=== PATIENT | male | born 1985 | race Caucasian/White ===

== ENCOUNTER 2022-10-01 22:44 | Emergency (ER) | payer OTHER ==
--- OUTSIDE RECORDS SUMMARY | 2022-10-01 23:02 | XMS REPORT | Continuity of Care Document ---
:1985 Author Organization [facility] t Address [address] [place] [address] Care Team Providers Name Role Phone BETTYE DELEON Primary Care Physician Unavailable URSZULA MONTANO Attending Clinician Unavailable CEE ALMANZA Attending Clinician Unavailable 2, [facility] Attending Clinician Unavailable Urszula Sanchez Attending Clinician Doctor Unassigned, [place] Attending Clinician Unavailable BETTYE DELEON Attending Clinician Unavailable BETTYE DELEON Attending Clinician Unavailable Pob, [facility] Main Attending Clinician Unavailable Vaccine, [facility] Attending Clinician Unavailable Goirgio Wiggins DO Attending Clinician GIORGIO WIGGINS Attending Clinician Unavailable Kavin Drew Attending Clinician KVAIN ESTEVEZ Attending Clinician Unavailable Only, [facility] Attending Clinician Unavailable UNKNOWN, ATTENDING Attending Clinician Unavailable Malini Billingsley MD Attending Clinician [phone] FABIENNE FIELD Attending Clinician Unavailable HENNY TALBOT Attending Clinician Unavailable Fabienne Field MD Attending Clinician Sully Carney RN Attending Clinician Unavailable Provider, [facility] Attending Clinician Unavailable Erin Jones PA-C Attending Clinician Cailin Banks Attending Clinician BETTYE DELEON Admitting Clinician Unavailable Payers Payer Name Policy Type Policy Number Effective Date Expiration Date [facility] [id number] 2018 00:00:00 Problems Condition Condition Condition Status Onset Resolution Last Treating Co mments Source Name Details Category Date Date Treatment Clinician Date Tinea Tinea Disease Active Univers cruris cruris 3-10 ity of 00:00: [place] [facility] COVID-19 COVID-19 Disease Active Unive rs virus virus 2-23 [place] [facility] Arthralgia Arthralgia Disease Active U nivers , , 2-23 [place] unspecif[place] joint 00 [facility] Swelling Swelling Disease Active Unive rs of joint of joint 2-23 ity of of of 00:00: [place] multiple multiple 00 Medica l sites sites Branch 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 2-23 ity of 00:00: [place] [facility] Sore Sore Disease Active Univers throat throat 2-23 ity of 00:00: [place] [facility] Allergies, Adverse Reactions, Alerts Allergy Allergy Status Severity Reaction(s) Onset Inactive Treating Comm ents Source Name Type Date Date Clinician NO KNOWN Drug Active Univers ALLERGIE Class ity of S [facility] Social History Social Habit Start Date Stop Date Quantity Comments Source History [facility] o f Alcohol Frequency [facility] History [facility] o f Alcohol Std Drinks [facility] History [facility] o f Alcohol Binge [facility] History of tobacco Cigarette Smoker University of use [facility] Alcohol intake 2022-09-27 2022-09-27 0 /d University of 00:00:00 00:00:00 [facility] Exposure to 2022-08-27 2022-09-06 Not sure [facility] SARS-CoV-2 (event) 00:00:00 12:39:00 [facility] Cigarettes smoked 2022-02-26 2022-02-26 Univers ity of current (pack per 00:00:00 00:00:00 [facility] ) - Reported Branch Cigarette 2022-02-26 2022-02-26 University of pack-years 00:00:00 00:00:00 [facility] Tobacco use and 2022-02-26 2022-02-26 Former smokeless Uni versity of exposure 00:00:00 00:00:00 tobacco user [facility] Tobacco Comment 2022-02-26 2022-02-26 quit 2009 Universit y of 00:00:00 00:00:00 [facility] Alcohol Comment 2016-12-04 2016-12-04 Quit drinking 4 Univ ersity of 00:00:00 00:00:00 months ago [facility] Sex [birth year] At [birth year] Universit y of 00:00:00 00:00:00 [facility] Smoking Status Start Date Stop Date Source Ex-smoker 2022-02-26 00:00:00 2022-02-26 00:00:00 [facility] [place] [facility] Medications Ordered Filled Start Stop Current Ordering Indication Dosage Frequency Signature Comments Components Source Medication Medication Date Date Medication? Clinician (SIG) Name Name christopher Yes [id number] Apply to [place] [id number] area(s) 2 ity of acetonide 00:00: (two) [place] 0.1 % cream 00 times Medical daily. Branch triamcinolo Yes [id number] Apply to [place] [id number] area(s) 2 ity of acetonide 00:00: (two) [place] 0.1 % cream 00 times Medical daily. Branch triamcinolo Yes [id number] Apply to [place] [id number] area(s) 2 ity of acetonide 00:00: (two) [place] 0.1 % cream 00 times Medical daily. Branch cyclobenzap Yes [id number] 5mg Take 1 Univers rine 5 mg 5-11 tablet by ity o f tablet 00:00: mouth 3 [place] 00 (three) Medical times Branch daily as needed for Muscle Spasms. cyclobenzap 2022-0 Yes [id number] 5mg Take 1 Univers rine 5 mg 5-11 tablet by ity o f tablet 00:00: mouth 3 [place] 00 (three) Medical times Branch daily as needed for Muscle Spasms. cyclobenzap 2022-0 Yes [id number] 5mg Take 1 Univers rine 5 mg 5-11 tablet by ity o f tablet 00:00: mouth 3 [place] 00 (three) Medical times Branch daily as needed for Muscle Spasms. cyclobenzap 2023-0 Yes [id number] 5mg Take 1 Univers rine 5 mg 5-11 tablet by ity o f tablet 00:00: mouth 3 [place] 00 (three) Medical times Branch daily as needed for Muscle Spasms. cyclobenzap Yes [id number] 5mg Take 1 Univers rine 5 mg 5-11 tablet by ity o f tablet 00:00: mouth 3 [place] 00 (three) Medical times Branch daily as needed for Muscle Spasms. levothyroxi Yes [id number] 125ug Take 1 Univers ne 125 mcg 4-17 tablet by ity of tablet 00:00: mouth [place] 00 every Medical morning. Branch levothyroxi Yes [id number] 125ug Take 1 Univers ne 125 mcg 4-17 tablet by ity of tablet 00:00: mouth [place] 00 every Medical morning. Branch levothyroxi Yes [id number] 125ug Take 1 Univers ne 125 mcg 4-17 tablet by ity of tablet 00:00: mouth [place] 00 every Medical morning. Branch levothyroxi Yes [id number] 125ug Take 1 Univers ne 125 mcg 4-17 tablet by ity of tablet 00:00: mouth [place] 00 every Medical morning. Branch levothyroxi Yes [id number] 125ug Take 1 Univers ne 125 mcg 4-17 tablet by ity of tablet 00:00: mouth [place] 00 every Medical morning. Branch levothyroxi Yes [id number] 125ug Take 1 Univers ne 125 mcg 4-17 tablet by ity of tablet 00:00: mouth [place] 00 every Medical morning. Branch levothyroxi Yes [id number] 125ug Take 1 Univers ne 125 mcg 4-17 tablet by ity of tablet 00:00: mouth [place] 00 every Medical morning. Branch levothyroxi Yes [id number] 125ug Take 1 Univers ne 125 mcg 4-17 tablet by ity of tablet 00:00: mouth [place] 00 every Medical morning. Branch naproxen 2022- No Take by Unive rs sodium 08-08 mouth as ity of (ALEVE 11:30: 00:00 needed. [place] ORAL) 55 :00 Medical Branch acetaminoph 2022- No Take by Vignesh velez en (TYLENOL 4-12 04-12 mouth as ity of ORAL) 11:30: 00:00 needed for [place] 55 :00 Pain Medical (scale Branch 1-3), Pain (scale 4-6) or Pain (scale 7-10). methylPREDN 2021-04 Yes [id number] Take by Univers ISolone 0-31 mouth ity of (MEDROL, 00:00: SEE-INSTRU [place] as SCOTTY,) 4 mg 00 CTIONS. Medica l tablets follow Branch package directions diclofenac 2021-04 Yes [id number] 75mg Take 1 U nivers 75 mg EC 0-31 tablet by ity of tablet 00:00: mouth in [place] 00 the Medical morning Branch and 1 tablet in the evening. Take with meals. Please do not take with other NSAID's methylPREDN 2021-04 Yes [id number] Take by Univers ISolone 0-31 mouth ity of (MEDROL, 00:00: SEE-INSTRU [place] SCOTTY,) 4 mg 00 CTIONS. Medica l tablets follow Branch package directions diclofenac 2021-04 Yes [id number] 75mg Take 1 U nivers 75 mg EC 0-31 tablet by ity of tablet 00:00: mouth in [place] [address] the [facility] and 1 tablet in the evening. Take with meals. Please do not take with other NSAID's methylPREDN 2021-04 Yes [id number] Take by Univers ISolone 0-31 mouth ity of (MEDROL, 00:00: SEE-INSTRU [place]OT[place],) 4 mg 00 CTIONS. Medica l tablets follow Branch package directions diclofenac 2021-04 Yes [id number] 75mg Take 1 U nivers 75 mg EC 0-31 tablet by ity of tablet 00:00: mouth in [place] [address] the [facility] morning Branch and 1 tablet in the evening. Take with meals. Please do not take with other NSAID's methylPREDN 2021-04 Yes [id number] Take by Univers ISolone 0-31 mouth ity of (MEDROL, 00:00: SEE-INSTRU [place]OT[place],) 4 mg 00 CTIONS. Medica l tablets follow Branch package directions diclofenac 2021-04 Yes [id number] 75mg Take 1 U nivers 75 mg EC 0-31 tablet by ity of tablet 00:00: mouth in [place] [address] the [facility] morning [place] and 1 tablet in the evening. Take with meals. Please do not take with other NSAID's methylPREDN 2021-04 Yes [id number] Take by Univers ISolone 0-31 mouth ity of (MEDROL, 00:00: SEE-INSTRU [place],) 4 mg 00 CTIONS. Medica l tablets follow Branch package directions diclofenac 2021-04 Yes [id number] 75mg Take 1 U nivers 75 mg EC 0-31 tablet by ity of tablet 00:00: mouth in [place] [address] the [facility] and 1 tablet in the evening. Take with meals. Please do not take with other NSAID's methylPREDN 2021-04 Yes [id number] Take by Univers ISolone 0-31 mouth ity of (MEDROL, 00:00: SEE-INSTRU [place],) 4 mg 00 CTIONS. Medica l tablets follow Branch package directions diclofenac 2021-04 Yes [id number] 75mg Take 1 U nivers 75 mg EC 0-31 tablet by ity of tablet 00:00: mouth in [address] and 1 tablet in the evening. Take with meals. Please do not take with other NSAID's methylPREDN 2021-04 Yes [id number] Take by Univers ISolone 0-31 mouth ity of (MEDROL, 00:00: SEE-INSTRU [place],) 4 mg 00 CTIONS. Medica l tablets follow Branch package directions diclofenac 2021-04 Yes [id number] 75mg Take 1 U nivers 75 mg EC 0-31 tablet by ity of tablet 00:00: mouth in [address] and 1 tablet in the evening. Take with meals. Please do not take with other NSAID's methylPREDN 2021-04 Yes [id number] Take by Univers ISolone 0-31 mouth ity of (MEDROL, 00:00: SEE-INSTRU [place],) 4 mg 00 CTIONS. Medica l tablets follow Branch package directions diclofenac 2021-04 Yes [id number] 75mg Take 1 U nivers 75 mg EC 0-31 tablet by ity of tablet 00:00: mouth in [address] and 1 tablet in the evening. Take with meals. Please do not take with other NSAID's methylPREDN 2021-04 Yes [id number] Take by Univers ISolone 0-31 mouth ity of (MEDROL, 00:00: SEE-INSTRU [place],) 4 mg 00 CTIONS. Medica l tablets follow Branch package directions diclofenac 2021-04 Yes [id number] 75mg Take 1 U nivers 75 mg EC 0-31 tablet by ity of tablet 00:00: mouth in [place] 00 the Medical morning [place] and 1 tablet in the evening. Take with meals. Please do not take with other NSAID's methylPREDN 2021-04 Yes [id number] Take by Univers ISolone 0-31 mouth ity of (MEDROL, 00:00: SEE-INSTRU [place],) 4 mg 00 CTIONS. Medica l tablets follow Branch package directions diclofenac 2021-04 Yes [id number] 75mg Take 1 U nivers 75 mg EC 0-31 tablet by ity of tablet 00:00: mouth in [place] 00 the [facility] morning [place] and 1 tablet in the evening. Take with meals. Please do not take with other NSAID's methylPREDN 2021-04- No [id number] Take by Univers ISolone 0-31 04-12 mouth ity of (MEDROL, 00:00: 00:00 [place]IN[place]OT[place],) 4 mg 00 :00 CTIONS. Medica l tablets follow Branch package directions diclofenac 2021-04- No [id number] 75mg Take 1 Univers 75 mg EC 0-31 04-12 tablet by ity o f tablet 00:00: 00:00 mouth in [place] 00 :00 the [facility] and 1 tablet in the evening. Take with meals. Please do not take with other NSAID's neomycin-po 2021- No [id number] 3[drp] Place 3 Univers lymyxin-hyd 08-02 53309 Drops in it y of rocortisone 00:00: 04:59 right ear [place] 3.5-10,000- 00 :00 4 (four) Medi giancarlo 1 times Branch mg/mL-unit/ daily for mL-% otic 7 days. susp Diclofenac 2020-04 Yes [id number] Apply 4g Univers Sodium 2-01 to ity of (VOLTAREN) 00:00: affected [place] 1 % gel 00 [facility] Diclofenac 2020-04 Yes [id number] Apply 4g Univers Sodium 2-01 to ity of (VOLTAREN) 00:00: affected [place] 1 % gel 00 [facility] Diclofenac 2020-04 Yes [id number] Apply 4g Univers Sodium 2-01 to ity of (VOLTAREN) 00:00: affected [place] 1 % gel 00 area [facility] Branch Diclofenac 2020-04 Yes [id number] Apply 4g Univers Sodium 2-01 to ity of (VOLTAREN) 00:00: affected [place] 1 % gel 00 [facility] Branch Diclofenac 2020-04 Yes [id number] Apply 4g Univers Sodium 2-01 to ity of (VOLTAREN) 00:00: affected [place] 1 % gel 00 area [facility] Branch Diclofenac 2020-04 Yes [id number] Apply 4g Univers Sodium 2-01 to ity of (VOLTAREN) 00:00: affected [place] 1 % gel 00 area [facility] Branch Diclofenac 2020-04 Yes [id number] Apply 4g Univers Sodium 2-01 to ity of (VOLTAREN) 00:00: affected [place] 1 % gel 00 [facility] Branch Diclofenac 2020-04 Yes [id number] Apply 4g Univers Sodium 2-01 to ity of (VOLTAREN) 00:00: affected [place] 1 % gel 00 area [facility] Branch Diclofenac 2020-04 Yes [id number] Apply 4g Univers Sodium 2-01 to ity of (VOLTAREN) 00:00: affected [place] 1 % gel 00 [facility] Branch Diclofenac 2020-04 Yes [id number] Apply 4g Univers Sodium 2-01 to ity of (VOLTAREN) 00:00: affected [place] 1 % gel 00 [facility] Branch Diclofenac 2020-04 Yes [id number] Apply 4g Univers Sodium 2-01 to ity of (VOLTAREN) 00:00: affected [place] % gel 00 area [facility] Branch Diclofenac 2020-04 Yes [id number] Apply 4g Univers Sodium 2-01 to ity of (VOLTAREN) 00:00: affected [place] 1 % gel 00 area [facility] Branch Diclofenac 2020-04 Yes [id number] Apply 4g Univers Sodium 2-01 to ity of (VOLTAREN) 00:00: affected [place] 1 % gel 00 [facility] Branch Diclofenac 2020-04 Yes [id number] Apply 4g Univers Sodium 2-01 to ity of (VOLTAREN) 00:00: affected [place] 1 % gel 00 area [facility] Branch Diclofenac 2020-043- No [id number] Apply 4g Univers Sodium 05-30 to ity of (VOLTAREN) 00:00: 00:00 [place] % gel 00 :00 area QID Medical Branch acetaminoph 0 Yes Take by Uni vers en (TYLENOL 8-20 mouth as ity of ORAL) 15:39: needed for [place] 19 Pain Medical (scale Branch 1-3), Pain (scale 4-6) or Pain (scale 7-10). acetaminoph Yes Take by Uni vers en (TYLENOL 8-20 mouth as ity of ORAL) 15:39: needed for [place] 19 Pain Medical (scale Branch 1-3), Pain (scale 4-6) or Pain (scale 7-10). acetaminoph 0 Yes Take by Uni vers en (TYLENOL 8-20 mouth as ity of ORAL) 15:39: needed for [place] 19 Pain Medical (scale Branch 1-3), Pain (scale 4-6) or Pain (scale 7-10). acetaminoph 0 Yes Take by Uni vers en (TYLENOL 8-20 mouth as ity of ORAL) 15:39: needed for [place] 19 Pain Medical (scale Branch 1-3), Pain (scale 4-6) or Pain (scale 7-10). acetaminoph 0 Yes Take by Uni vers en (TYLENOL 8-20 mouth as ity of ORAL) 15:39: needed for [place] 19 Pain Medical (scale Branch 1-3), Pain (scale 4-6) or Pain (scale 7-10). acetaminoph 2020-0 Yes Take by Uni vers en (TYLENOL 8-20 mouth as ity of ORAL) 15:39: needed for [place] 19 Pain Medical (scale Branch 1-3), Pain (scale 4-6) or Pain (scale 7-10). acetaminoph 2020-0 Yes Take by Uni vers en (TYLENOL 8-20 mouth as ity of ORAL) 15:39: needed for [place] 19 Pain Medical (scale Branch 1-3), Pain (scale 4-6) or Pain (scale 7-10). acetaminoph 2020-0 Yes Take by Uni vers en (TYLENOL 8-20 mouth as ity of ORAL) 15:39: needed for [place] 19 Pain Medical (scale Branch 1-3), Pain (scale 4-6) or Pain (scale 7-10). acetaminoph 1-0 Yes Take by Uni vers en (TYLENOL 8-20 mouth as ity of ORAL) 15:39: needed for [place] 19 Pain Medical (scale Branch 1-3), Pain (scale 4-6) or Pain (scale 7-10). acetaminoph 2021-0 Yes Take by Uni vers en (TYLENOL 8-20 mouth as ity of ORAL) 15:39: needed for [place] [address] Pain Medical (scale Branch 1-3), Pain (scale 4-6) or Pain (scale 7-10). acetaminoph 2021-0 Yes Take by Uni vers en (TYLENOL 8-20 mouth as ity of ORAL) 15:39: needed for [place] [address] Pain Medical (scale Branch 1-3), Pain (scale 4-6) or Pain (scale 7-10). acetaminoph 2020-0 Yes Take by Uni vers en (TYLENOL 8-20 mouth as ity of ORAL) 15:39: needed for [place] [address] Pain Medical (scale Branch 1-3), Pain (scale 4-6) or Pain (scale 7-10). acetaminoph 1-0 Yes Take by Uni vers en (TYLENOL 8-20 mouth as ity of ORAL) 15:39: needed for [place] [address] Pain Medical (scale Branch 1-3), Pain (scale 4-6) or Pain (scale 7-10). acetaminoph 1-0 Yes Take by Uni vers en (TYLENOL 8-20 mouth as ity of ORAL) 15:39: needed for [place] [address] Pain Medical (scale Branch 1-3), Pain (scale 4-6) or Pain (scale 7-10). nystatin 2020-0 Yes [id number] Apply to Univers 100,000 3-10 area(s) 2 ity of unit/gram 00:00: (two) [place] cream 00 times Medical daily. Branch clotrimazol 2020-0 Yes [id number] 2g Apply 2 g Univers e 1 % 3-10 to area(s) ity of ointment 00:00: 2 (two) [place] 00 times Medical daily. Branch nystatin 2020-0 Yes [id number] Apply to Univers 100,000 3-10 area(s) 2 ity of unit/gram 00:00: (two) [place] cream 00 times Medical daily. Branch clotrimazol 2021-0 Yes [id number] 2g Apply 2 g Univers e 1 % 3-10 to area(s) ity of ointment 00:00: 2 (two) [place] 00 times Medical daily. Branch nystatin 2021-0 Yes [id number] Apply to Univers 100,000 3-10 area(s) 2 ity of unit/gram 00:00: (two) [place] cream 00 times Medical daily. Branch clotrimazol 1-0 Yes [id number] 2g Apply 2 g Univers e 1 % 3-10 to area(s) ity of ointment 00:00: 2 (two) [place] 00 times Medical daily. Branch nystatin 1-0 Yes [id number] Apply to Univers 100,000 3-10 area(s) 2 ity of unit/gram 00:00: (two) [place] cream 00 times Medical daily. Branch clotrimazol 2020-0 Yes [id number] 2g Apply 2 g Univers e 1 % 3-10 to area(s) ity of ointment 00:00: 2 (two) [place] 00 times Medical daily. Branch nystatin 1-0 Yes [id number] Apply to Univers 100,000 3-10 area(s) 2 ity of unit/gram 00:00: (two) [place] cream 00 times Medical daily. Branch clotrimazol 1-0 Yes [id number] 2g Apply 2 g Univers e 1 % 3-10 to area(s) ity of ointment 00:00: 2 (two) [place] 00 times Medical daily. Branch nystatin 2021-0 Yes [id number] Apply to Univers 100,000 3-10 area(s) 2 ity of unit/gram 00:00: (two) [place] cream 00 times Medical daily. Branch clotrimazol 2021-0 Yes [id number] 2g Apply 2 g Univers e 1 % 3-10 to area(s) ity of ointment 00:00: 2 (two) [place] 00 times Medical daily. Branch nystatin 2021-0 Yes [id number] Apply to Univers 100,000 3-10 area(s) 2 ity of unit/gram 00:00: (two) [place] cream 00 times Medical daily. Branch clotrimazol 2021-0 Yes [id number] 2g Apply 2 g Univers e 1 % 3-10 to area(s) ity of ointment 00:00: 2 (two) [place] 00 times Medical daily. Branch nystatin 2021-0 Yes [id number] Apply to Univers 100,000 3-10 area(s) 2 ity of unit/gram 00:00: (two) [place] cream 00 times Medical daily. Branch clotrimazol 1-0 Yes [id number] 2g Apply 2 g Univers e 1 % 3-10 to area(s) ity of ointment 00:00: 2 (two) [place] 00 times Medical daily. Branch nystatin 2021-0 Yes [id number] Apply to Univers 100,000 3-10 area(s) 2 ity of unit/gram 00:00: (two) [place] cream 00 times Medical daily. Branch clotrimazol 1-0 Yes [id number] 2g Apply 2 g Univers e 1 % 3-10 to area(s) ity of ointment 00:00: 2 (two) [place] 00 times Medical daily. Branch nystatin 2021-0 Yes [id number] Apply to Univers 100,000 3-10 area(s) 2 ity of unit/gram 00:00: (two) [place] cream 00 times Medical daily. Branch clotrimazol 1-0 Yes [id number] 2g Apply 2 g Univers e 1 % 3-10 to area(s) ity of ointment 00:00: 2 (two) [place] 00 times Medical daily. Branch nystatin 2021-0 Yes [id number] Apply to Univers 100,000 3-10 area(s) 2 ity of unit/gram 00:00: (two) [place] cream 00 times Medical daily. Branch clotrimazol 2021-0 Yes [id number] 2g Apply 2 g Univers e 1 % 3-10 to area(s) ity of ointment 00:00: 2 (two) [place] 00 times Medical daily. Branch nystatin 2021-0 Yes [id number] Apply to Univers 100,000 3-10 area(s) 2 ity of unit/gram 00:00: (two) [place] cream 00 times Medical daily. Branch clotrimazol 2021-0 Yes [id number] 2g Apply 2 g Univers e 1 % 3-10 to area(s) ity of ointment 00:00: 2 (two) [place] 00 times Medical daily. Branch nystatin Yes [id number] Apply to Univers 100,000 3-10 area(s) 2 ity of unit/gram 00:00: (two) [place] cream 00 times Medical daily. Branch clotrimazol Yes [id number] 2g Apply 2 g Univers e 1 % 3-10 to area(s) ity of ointment 00:00: 2 (two) [place] 00 times Medical daily. Branch nystatin 2022- No [id number] Apply to Univers 100,000 3-10 04-12 area(s) 2 ity of unit/gram 00:00: 00:00 (two) [place] cream 00 :00 times Medical daily. Branch clotrimazol 2022- No [id number] 2g Apply 2 g Univers e 1 % 3-10 04-12 to area(s) ity of ointment 00:00: 00:00 2 (two) [place] 00 :00 times Medical daily. Branch Diclofenac 2020- No [id number] Apply 4g Univers Sodium 3-03 03-03 to ity of (VOLTAREN) 00:00: 00:00 affected [place] 1 % gel 00 :00 area QID Medical Branch naproxen Yes Take by Univer s sodium 2-23 mouth as ity of (ALEVE 15:23: needed. [place] ORAL) 35 Medical Branch naproxen Yes Take by Univer s sodium 2-23 mouth as ity of (ALEVE 15:23: needed. [place] ORAL) 35 Medical Branch naproxen Yes Take by Univer s sodium 2-23 mouth as ity of (ALEVE 15:23: needed. [place] ORAL) 35 Medical Branch naproxen Yes Take by Univer s sodium 2-23 mouth as ity of (ALEVE 15:23: needed. [place] ORAL) 35 Medical Branch naproxen Yes Take by Univer s sodium 2-23 mouth as ity of (ALEVE 15:23: needed. [place] ORAL) 35 Medical Branch naproxen Yes Take by Univer s sodium 2-23 mouth as ity of (ALEVE 15:23: needed. [place] ORAL) 35 Medical Branch naproxen Yes Take by Univer s sodium 2-23 mouth as ity of (ALEVE 15:23: needed. [place] ORAL) 35 Medical Branch naproxen Yes Take by Univer s sodium 2-23 mouth as ity of (ALEVE 15:23: needed. [place] ORAL) 35 Medical Branch naproxen Yes Take by Univer s sodium 2-23 mouth as ity of (ALEVE 15:23: needed. [place] ORAL) 35 Medical Branch naproxen Yes Take by Univer s sodium 2-23 mouth as ity of (ALEVE 15:23: needed. [place] ORAL) 35 Medical Branch naproxen Yes Take by Univer s sodium 2-23 mouth as ity of (ALEVE 15:23: needed. [place] ORAL) 35 Medical Branch naproxen Yes Take by Univer s sodium 2-23 mouth as ity of (ALEVE 15:23: needed. [place] ORAL) 35 Medical Branch naproxen Yes Take by Univer s sodium 2-23 mouth as ity of (ALEVE 15:23: needed. [place] ORAL) 35 Medical Branch naproxen Yes Take by Univer s sodium 2-23 mouth as ity of (ALEVE 15:23: needed. [place] ORAL) 35 Medical Branch cetirizine Yes [id number] 10mg Take 1 Univers (ZYRTEC) 10 2-23 tablet by ity of mg tablet 00:00: [place] bedtime as Medical needed for Branch Allergies (COVID Infection) . Calcium Yes [id number] 1{tbl} Take 1 U nivers Citrate-Vit 2-23 tablet by ity of [place] D2 00:00: mouth [place] 1,500-200 00 daily. Medical mg-unit per Branch tablet ascorbic Yes [id number] 500mg Take 1 U nivers acid, 2-23 tablet by ity of vitamin C, 00:00: mouth [place] (VITAMIN C) 00 daily. Medica l 500 mg Branch tablet Magnesium Yes [id number] 1{tbl} Take 1 Univers 250 mg Tab 2-23 tablet by ity of 00:00: mouth [place] 00 daily. Medical Branch naproxen Yes [id number] 500mg Take 1 Un [place] 500 mg 2-23 tablet by ity of tablet 00:00: mouth 2 [place] 00 (two) Medical times Branch daily with meals. traMADoL 50 0 Yes [id number] 50mg Take 1 Univ ers mg tablet 2-23 tablet by ity o f 00:00: mouth [place] 00 every 6 Medical (six) Branch hours as needed for Pain (scale 7-10). Indication s: acute pain cetirizine Yes [id number] 10mg Take 1 Univers (ZYRTEC) 10 2-23 tablet by ity of mg tablet 00:00: [place] 00 bedtime as Medical needed for Branch Allergies (COVID Infection) . Calcium Yes [id number] 1{tbl} Take 1 U nivers Citrate-Vit 2-23 tablet by ity of [place] D2 00:00: mouth [place] 1,500-200 00 daily. Medical mg-unit per Branch tablet ascorbic Yes [id number] 500mg Take 1 [facility] nivers acid, 2-23 tablet by ity of vitamin C, 00:00: mouth [place] (VITAMIN C) 00 daily. Medica l 500 mg Branch tablet Magnesium Yes [id number] 1{tbl} Take 1 [facility] 250 mg Tab 2-23 tablet by ity of 00:00: mouth [place] 00 daily. Medical Branch naproxen Yes [id number] 500mg Take 1 [facility] [place] 500 mg 2-23 tablet by ity of tablet 00:00: mouth 2 [place] 00 (two) Medical times Branch daily with meals. traMADoL 50 0 Yes [id number] 50mg Take 1 [facility] ers mg tablet 2-23 tablet by ity o f 00:00: mouth [place] 00 every 6 Medical (six) Branch hours as needed for Pain (scale 7-10). Indication s: acute pain cetirizine 0 Yes [id number] 10mg Take 1 [facility] (ZYRTEC) 10 2-23 tablet by [facility] mg tablet [place] bedtime as Medical needed for Branch Allergies (COVID Infection) . Calcium 2020-0 Yes [id number] 1{tbl} Take 1 U nivers Citrate-Vit 2-23 tablet by ity of [place] D2 00:00: mouth [place] 1,500-200 00 daily. Medical mg-unit per Branch tablet ascorbic 2020-0 Yes [id number] 500mg Take 1 [facility] acid, 2-23 tablet by ity of vitamin C, 00:00: mouth [place] (VITAMIN C) 00 daily. Medica l 500 mg Branch tablet Magnesium 2020-0 Yes [id number] 1{tbl} Take 1 [facility] 250 mg Tab 2-23 tablet by ity of 00:00: mouth [place] 00 daily. Medical Branch naproxen 2020-0 Yes [id number] 500mg Take 1 [facility] [place] 500 mg 2-23 tablet by ity of tablet 00:00: mouth 2 [place] 00 (two) Medical times Branch daily with meals. traMADoL 50 2020-0 Yes [id number] 50mg Take 1 [facility] ers mg tablet 2-23 tablet by ity o f 00:00: mouth [place] 00 every 6 Medical (six) Branch hours as needed for Pain (scale 7-10). Indication s: acute pain cetirizine 2020-0 Yes [id number] 10mg Take 1 [facility] (ZYRTEC) 10 2-23 tablet by [facility] mg tablet 00:00: [place] 00 bedtime as Medical needed for Branch Allergies (COVID Infection) . Calcium 2020-0 Yes [id number] 1{tbl} Take 1 [facility] n[facility] Citrate-Vit 2-23 tablet by ity of [place] D2 00:00: mouth [place] 1,500-200 00 daily. Medical mg-unit per Branch tablet ascorbic 2020-0 Yes [id number] 500mg Take 1 [facility] n[facility] acid, 2-23 tablet by ity of vitamin C, 00:00: mouth [place] (VITAMIN C) 00 daily. Medica l 500 mg Branch tablet Magnesium 2020-0 Yes [id number] 1{tbl} Take 1 [facility] 250 mg Tab 2-23 tablet by ity of 00:00: mouth [place] 00 daily. Medical Branch naproxen 2020-0 Yes [id number] 500mg Take 1 [facility] [place] 500 mg 2-23 tablet by ity of tablet 00:00: mouth 2 [place] 00 (two) Medical times Branch daily with meals. traMADoL 50 0 Yes [id number] 50mg Take 1 [facility] ers mg tablet 2-23 tablet by ity o f 00:00: mouth [place] 00 every 6 Medical (six) Branch hours as needed for Pain (scale 7-10). Indication s: acute pain cetirizine 0 Yes [id number] 10mg Take 1 [facility] (ZYRTEC) 10 2-23 tablet by [facility] mg tablet 00:00: [place] 00 bedtime as Medical needed for Branch Allergies (COVID Infection) . Calcium 2020-0 Yes [id number] 1{tbl} Take 1 [facility] nivers Citrate-Vit 2-23 tablet by [facility] of [place] D2 00:00: mouth [place] 1,500-200 00 daily. Medical mg-unit per Branch tablet ascorbic 2020-0 Yes [id number] 500mg Take 1 [facility] acid, 2-23 tablet by ity of vitamin C, 00:00: mouth [place] (VITAMIN C) 00 daily. Medica l 500 mg Branch tablet Magnesium 2020-0 Yes [id number] 1{tbl} Take 1 [facility] 250 mg Tab 2-23 tablet by ity of 00:00: mouth [place] 00 daily. Medical Branch traMADoL 50 2020-0 Yes [id number] 50mg Take 1 [facility] ers mg tablet 2-23 tablet by ity o f 00:00: mouth [place] 00 every 6 Medical (six) Branch hours as needed for Pain (scale 7-10). Indication s: acute pain cetirizine 0 Yes [id number] 10mg Take 1 [facility] (ZYRTEC) 10 2-23 tablet by [facility] mg tablet 00:00: [place] 00 bedtime as Medical needed for Branch Allergies (COVID Infection) . Calcium 2020-0 Yes [id number] 1{tbl} Take 1 [facility] nivers Citrate-Vit 2-23 tablet by [facility]y of [place] D2 00:00: mouth [place] 1,500-200 00 daily. Medical mg-unit per Branch tablet ascorbic 2020-0 Yes [id number] 500mg Take 1 [facility] n[facility] acid, 2-23 tablet by ity of vitamin C, 00:00: mouth [place] (VITAMIN C) 00 daily. Medica l 500 mg Branch tablet Magnesium 2020-0 Yes [id number] 1{tbl} Take 1 [facility] 250 mg Tab 2-23 tablet by ity of 00:00: mouth [place] 00 daily. Medical Branch traMADoL 50 2020-0 Yes [id number] 50mg Take 1 [facility] ers mg tablet 2-23 tablet by ity o f 00:00: mouth [place] 00 every 6 Medical (six) Branch hours as needed for Pain (scale 7-10). Indication s: acute pain cetirizine 2020-0 Yes [id number] 10mg Take 1 [facility] (ZYRTEC) 10 2-23 tablet by [facility] mg tablet 00:00: [place] 00 bedtime as Medical needed for Branch Allergies (COVID Infection) . Calcium 2020-0 Yes [id number] 1{tbl} Take 1 [facility] nivers Citrate-Vit 2-23 tablet by ity of [place] D2 00:00: mouth [place] 1,500-200 00 daily. Medical mg-unit per Branch tablet ascorbic 2020-0 Yes [id number] 500mg Take 1 [facility] acid, 2-23 tablet by ity of vitamin C, 00:00: mouth [place] (VITAMIN C) 00 daily. Medica l 500 mg Branch tablet Magnesium 2020-0 Yes [id number] 1{tbl} Take 1 [facility] 250 mg Tab 2-23 tablet by ity of 00:00: mouth [place] 00 daily. Medical Branch traMADoL 50 2020-0 Yes [id number] 50mg Take 1 [facility] ers mg tablet 2-23 tablet by ity o f 00:00: mouth [place] 00 every 6 Medical (six) Branch hours as needed for Pain (scale 7-10). Indication s: acute pain cetirizine 0 Yes [id number] 10mg Take 1 [facility] (ZYRTEC) 10 2-23 tablet by [facility] mg tablet 00:00: [place] 00 bedtime as Medical needed for Branch Allergies (COVID Infection) . Calcium 2020-0 Yes [id number] 1{tbl} Take 1 [facility] nivers Citrate-Vit 2-23 tablet by ity of [place] D2 00:00: mouth [place] 1,500-200 00 daily. Medical mg-unit per Branch tablet ascorbic 2020-0 Yes [id number] 500mg Take 1 [facility] acid, 2-23 tablet by ity of vitamin C, 00:00: mouth [place] (VITAMIN C) 00 daily. Medica l 500 mg Branch tablet Magnesium 2020-0 Yes [id number] 1{tbl} Take 1 [facility] 250 mg Tab 2-23 tablet by ity of 00:00: mouth [place] 00 daily. Medical Branch traMADoL 50 0 Yes [id number] 50mg Take 1 [facility] ers mg tablet 2-23 tablet by ity o f 00:00: mouth [place] 00 every 6 Medical (six) Branch hours as needed for Pain (scale 7-10). Indication s: acute pain cetirizine Yes [id number] 10mg Take 1 [facility] (ZYRTEC) 10 2-23 tablet by [facility] mg tablet 00:00: [place] 00 bedtime as Medical needed for Branch Allergies (COVID Infection) . Calcium Yes [id number] 1{tbl} Take 1 [facility] n[facility] Citrate-Vit 2-23 tablet by [facility] of [place] D2 00:00: mouth [place] 1,500-200 00 daily. Medical mg-unit per Branch tablet ascorbic 2020-0 Yes [id number] 500mg Take 1 [facility] acid, 2-23 tablet by ity of vitamin C, 00:00: mouth [place] (VITAMIN C) 00 daily. Medica l 500 mg Branch tablet Magnesium Yes [id number] 1{tbl} Take 1 [facility] 250 mg Tab 2-23 tablet by ity of 00:00: mouth [place] 00 daily. Medical Branch traMADoL 50 0 Yes [id number] 50mg Take 1 [facility] ers mg tablet 2-23 tablet by ity o f 00:00: mouth [place] 00 every 6 Medical (six) Branch hours as needed for Pain (scale 7-10). Indication s: acute pain cetirizine 0 Yes [id number] 10mg Take 1 [facility] (ZYRTEC) 10 2-23 tablet by [facility] mg tablet 00:00: mouth [place] 00 bedtime as Medical needed for Branch Allergies (COVID Infection) . Calcium 2020-0 Yes [id number] 1{tbl} Take 1 [facility] nivers Citrate-Vit 2-23 tablet by [facility] of [place] D2 00:00: mouth [place] 1,500-200 00 daily. Medical mg-unit per Branch tablet ascorbic 2020-0 Yes [id number] 500mg Take 1 [facility] nivers acid, 2-23 tablet by ity of vitamin C, 00:00: mouth [place] (VITAMIN C) 00 daily. Medica l 500 mg Branch tablet Magnesium 2020-0 Yes [id number] 1{tbl} Take 1 [facility] 250 mg Tab 2-23 tablet by ity of 00:00: mouth [place] 00 daily. Medical Branch traMADoL 50 2020-0 Yes [id number] 50mg Take 1 [facility] mg tablet 2-23 tablet by ity o f 00:00: mouth [place] 00 every 6 Medical (six) Branch hours as needed for Pain (scale 7-10). Indication s: acute pain cetirizine 2020-0 Yes [id number] 10mg Take 1 [facility] (ZYRTEC) 10 2-23 tablet by [facility] mg tablet 00:00: mouth [place] 00 bedtime as Medical needed for Branch Allergies (COVID Infection) . Calcium 2020- Yes [id number] 1{tbl} Take 1 [facility] nivers Citrate-Vit 2-23 tablet by [facility] of [place] D2 00:00: mouth [place] 1,500-200 00 daily. Medical mg-unit per Branch tablet ascorbic 2020-0 Yes [id number] 500mg Take 1 [facility] acid, 2-23 tablet by ity of vitamin C, 00:00: mouth [place] (VITAMIN C) 00 daily. Medica l 500 mg Branch tablet Magnesium 2020-0 Yes [id number] 1{tbl} Take 1 [facility] 250 mg Tab 2-23 tablet by ity of 00:00: mouth [place] 00 daily. Medical Branch traMADoL 50 2020-0 Yes [id number] 50mg Take 1 [facility] ers mg tablet 2-23 tablet by ity o f 00:00: mouth [place] 00 every 6 Medical (six) Branch hours as needed for Pain (scale 7-10). Indication s: acute pain cetirizine 2020-0 Yes [id number] 10mg Take 1 [facility] (ZYRTEC) 10 2-23 tablet by [facility] mg tablet 00:00: [place] 00 bedtime as Medical needed for Branch Allergies (COVID Infection) . Calcium 2020-0 Yes [id number] 1{tbl} Take 1 [facility] n[facility] Citrate-Vit 2-23 tablet by [facility] of [place] D2 00:00: mouth [place] 1,500-200 00 daily. Medical mg-unit per Branch tablet ascorbic 2020-0 Yes [id number] 500mg Take 1 [facility] n[facility] acid, 2-23 tablet by ity of vitamin C, 00:00: mouth [place] (VITAMIN C) 00 daily. Medica l 500 mg Branch tablet Magnesium 2020-0 Yes [id number] 1{tbl} Take 1 [facility] 250 mg Tab 2-23 tablet by ity of 00:00: mouth [place] 00 daily. Medical Branch traMADoL 50 2020-0 Yes [id number] 50mg Take 1 [facility] ers mg tablet 2-23 tablet by ity o f 00:00: mouth [place] 00 every 6 Medical (six) Branch hours as needed for Pain (scale 7-10). Indication s: acute pain cetirizine 2020- Yes [id number] 10mg Take 1 [facility] (ZYRTEC) 10 2-23 tablet by [facility] mg tablet 00:00: mouth [place] 00 bedtime as Medical needed for Branch Allergies (COVID Infection) . Calcium 2020- Yes [id number] 1{tbl} Take 1 [facility] nivers Citrate-Vit 2-23 tablet by [facility] of [place] D2 00:00: mouth [place] 1,500-200 00 daily. Medical mg-unit per Branch tablet ascorbic 2020- Yes [id number] 500mg Take 1 [facility] acid, 2-23 tablet by ity of vitamin C, 00:00: mouth [place] (VITAMIN C) 00 daily. Medica l 500 mg Branch tablet Magnesium 2020-0 Yes [id number] 1{tbl} Take 1 [facility] 250 mg Tab 2-23 tablet by ity of 00:00: mouth [place] 00 daily. Medical Branch traMADoL 50 2020-0 Yes [id number] 50mg Take 1 [facility] ers mg tablet 2-23 tablet by ity o f 00:00: mouth [place] 00 every 6 Medical (six) Branch hours as needed for Pain (scale 7-10). Indication s: acute pain cetirizine 2020-0 Yes [id number] 10mg Take 1 [facility] (ZYRTEC) 10 2-23 tablet by [facility] mg tablet 00:00: mouth [place] 00 bedtime as Medical needed for Branch Allergies (COVID Infection) . Calcium 2020-0 Yes [id number] 1{tbl} Take 1 [facility] nivers Citrate-Vit 2-23 tablet by [facility] of [place] D2 00:00: mouth [place] 1,500-200 00 daily. Medical mg-unit per Branch tablet ascorbic 2020-0 Yes [id number] 500mg Take 1 [facility] nivers acid, 2-23 tablet by ity of vitamin C, 00:00: mouth [place] (VITAMIN C) 00 daily. Medica l 500 mg Branch tablet Magnesium 2020-0 Yes [id number] 1{tbl} Take 1 [facility] 250 mg Tab 2-23 tablet by ity of 00:00: mouth [place] 00 daily. Medical Branch traMADoL 50 2020-0 Yes [id number] 50mg Take 1 [facility] ers mg tablet 2-23 tablet by ity o f 00:00: mouth [place] 00 every 6 Medical (six) Branch hours as needed for Pain (scale 7-10). Indication s: acute pain Calcium 2020-0 Yes [id number] 1{tbl} Take 1 [facility] nivers Citrate-Vit 2-23 tablet by [facility]y of [place] D2 00:00: mouth [place] 1,500-200 00 daily. Medical mg-unit per Branch tablet ascorbic 2020-0 Yes [id number] 500mg Take 1 [facility] nivers acid, 2-23 tablet by ity of vitamin C, 00:00: mouth [place] (VITAMIN C) 00 daily. Medica l 500 mg Branch tablet Calcium 2020-0 Yes [id number] 1{tbl} Take 1 [facility] nivers Citrate-Vit 2-23 tablet by [facility] of [place] D2 00:00: mouth [place] 1,500-200 00 daily. Medical mg-unit per Branch tablet ascorbic 2020-0 Yes [id number] 500mg Take 1 [facility] nivers acid, 2-23 tablet by ity of vitamin C, 00:00: mouth [place] (VITAMIN C) 00 daily. Medica l 500 mg Branch tablet Calcium 2020-0 Yes [id number] 1{tbl} Take 1 U nivers Citrate-Vit 2-23 tablet by [facility]y of [place] D2 00:00: mouth [place] 1,500-200 00 daily. Medical mg-unit per Branch tablet ascorbic 2020-0 Yes [id number] 500mg Take 1 [facility] nivers acid, 2-23 tablet by ity of vitamin C, 00:00: mouth [place] (VITAMIN C) 00 daily. Medica l 500 mg Branch tablet Calcium 2020-0 Yes [id number] 1{tbl} Take 1 U nivers Citrate-Vit 2-23 tablet by ity of [place] D2 00:00: mouth [place] 1,500-200 00 daily. Medical mg-unit per Branch tablet ascorbic Yes [id number] 500mg Take 1 [facility] nivers acid, 2-23 tablet by ity of vitamin C, 00:00: mouth [place] (VITAMIN C) 00 daily. Medica l 500 mg Branch tablet Calcium 2022- No [id number] 1{tbl} Take 1 [facility] Citrate-Vit -18 09- tablet by it y of [place] D2 00:00: 00:00 mouth [place] 1,500-200 00 :00 daily. Medical mg-unit per Branch tablet ascorbic 2022- No [id number] 500mg Take 1 [facility] acid, -18 09- tablet by ity of vitamin C, 00:00: 00:00 mouth [place] (VITAMIN C) 00 :00 daily. Medica l 500 mg Branch tablet Calcium 2022- No [id number] 1{tbl} Take 1 [facility] Citrate-Vit -18 09- tablet by it y of [place] D2 00:00: 00:00 mouth [place] 1,500-200 00 :00 daily. Medical mg-unit per Branch tablet ascorbic 2022- No [id number] 500mg Take 1 [facility] acid, -18 09-11 tablet by ity of vitamin C, 00:00: 00:00 mouth [place] (VITAMIN C) 00 :00 daily. Medica l 500 mg Branch tablet cetirizine 2022- No [id number] 10mg Take 1 [facility] (ZYRTEC) 10 06-21 tablet by it y of mg tablet 00:00: 00:00 mouth at [place] 00 :00 bedtime as Medical needed for Branch Allergies (COVID Infection) . Magnesium 2022- No [id number] 1{tbl} Take 1 [facility] 250 mg Tab 06-21 tablet by ity of 00:00: 00:00 mouth [place] 00 :00 daily. Medical Branch traMADoL 50 2022- No [id number] 50mg Take 1 [facility] vers mg tablet 06-21 tablet by ity of 00:00: 00:00 mouth [place] 00 :00 every 6 Medical (six) Branch hours as needed for Pain (scale 7-10). Indication s: acute pain naproxen 2021- No [id number] 500mg Take 1 [facility] nivers 500 mg 06-21 tablet by ity of tablet 00:00: 00:00 mouth 2 [place] 00 :00 (two) Medical times Branch daily with meals. naproxen 2021- No [id number] 500mg Take 1 [facility] nivers 500 mg 06-21 tablet by ity of tablet 00:00: 00:00 mouth 2 [place] 00 :00 (two) Medical times Branch daily with meals. methylPREDN 2020- No [id number] Take by [facility] ISolone 06-21 mouth ity of (MEDROL, 00:00: 00:00 [place]INSTRU [place] 4 mg 00 :00 CTIONS. Medica l tablets follow Branch package directions amoxicillin 2020- No [id number] 1{tbl} Take 1 [facility] -clavulanat 06-21 tablet by it y of e 00:00: 00:00 mouth 2 [place] (AUGMENTIN) 00 :00 (two) Medical 875-125 mg times Branch per tablet daily. Immunizations Ordered Filled Immunization Date Status Comments [facility] e Immunization Name Name SARS-COV-2 COVID-19 2021-08-11 Completed Unive rsity of MODERNA BOOSTER 00:00:00 [place] Med ical VACCINE Branch SARS-COV-2 COVID-19 2021-08-11 Completed Unive rsity of MODERNA 0.25ML 00:00:00 [place] Medi gian[place]lo BOOSTER VACCINE Branch SARS-COV-2 COVID-19 2021-08-11 Completed Unive rsity of MODERNA 0.25ML 00:00:00 [place] Medi giancarlo BOOSTER VACCINE Branch SARS-COV-2 COVID-19 2021-08-11 Completed Unive rsity of MODERNA 0.25ML 00:00:00 [place] Medi giancarlo BOOSTER VACCINE Branch SARS-COV-2 COVID-19 2021-08-11 Completed Unive rsity of MODERNA 0.25ML 00:00:00 [place] Medi giancarlo BOOSTER VACCINE Branch SARS-COV-2 COVID-19 2021-08-11 Completed Unive rsity of MODERNA 0.25ML 00:00:00 [place] Medi giancarlo BOOSTER VACCINE Branch SARS-COV-2 COVID-19 2021-08-11 Completed Unive rsity of MODERNA 0.25ML 00:00:00 [place] Medi giancarlo BOOSTER VACCINE Branch SARS-COV-2 COVID-19 2021-08-11 Completed Unive rsity of MODERNA 0.25ML 00:00:00 [place] Medi giancarlo BOOSTER VACCINE Branch SARS-COV-2 COVID-19 2021-08-11 Completed Unive rsity of MODERNA 0.25ML 00:00:00 [place] Medi giancarlo BOOSTER VACCINE Branch SARS-COV-2 COVID-19 2021-08-11 Completed Unive rsity of MODERNA 0.25ML 00:00:00 [place] Medi giancarlo BOOSTER VACCINE Branch SARS-COV-2 COVID-19 2021-08-11 Completed Unive rsity of MODERNA 0.25ML 00:00:00 [place] Medi giancarlo BOOSTER VACCINE Branch SARS-COV-2 COVID-19 2021-08-11 Completed Unive rsity of MODERNA 0.25ML 00:00:00 [place] Medi giancarlo BOOSTER VACCINE Branch SARS-COV-2 COVID-19 2021-08-11 Completed Unive rsity of MODERNA 0.25ML 00:00:00 [place] Medi giancarlo BOOSTER VACCINE Branch SARS-COV-2 COVID-19 2021-08-11 Completed Unive rsity of MODERNA 0.25ML 00:00:00 [place] Medi giancarlo BOOSTER VACCINE Branch SARS-COV-2 COVID-19 2021-08-11 Completed Unive rsity of MODERNA 0.25ML 00:00:00 [place] Medi giancarlo BOOSTER VACCINE Branch SARS-COV-2 COVID-19 2021-08-11 Completed Unive rsity of MODERNA 0.25ML 00:00:00 [place] Medi giancarlo BOOSTER VACCINE Branch SARS-COV-2 COVID-19 2021-08-11 Completed Unive rsity of MODERNA 0.25ML 00:00:00 [place] Medi giancarlo BOOSTER VACCINE Branch SARS-COV-2 COVID-19 2021-08-11 Completed Unive rsity of MODERNA 0.25ML 00:00:00 [place] Medi giancarlo BOOSTER VACCINE Branch SARS-COV-2 COVID-19 2021-08-11 Completed Unive rsity of MODERNA 0.25ML 00:00:00 [place] Medi giancarlo BOOSTER VACCINE Branch SARS-COV-2 COVID-19 2021-08-11 Completed Unive rsity of MODERNA 0.25ML 00:00:00 [place] Medi giancarlo BOOSTER VACCINE Branch SARS-COV-2 COVID-19 2020-08-29 Completed Unive rsity of MODERNA VACCINE 00:00:00 [place] Med ical Branch SARS-COV-2 COVID-19 2020-08-29 Completed Unive rsity of MODERNA VACCINE 00:00:00 [place] Med ical Branch SARS-COV-2 COVID-19 2020-08-29 Completed Unive rsity of MODERNA VACCINE 00:00:00 [place] Med ical Branch SARS-COV-2 COVID-19 2020-08-29 Completed Unive rsity of MODERNA VACCINE 00:00:00 [place] Med ical Branch SARS-COV-2 COVID-19 2020-08-29 Completed Unive rsity of MODERNA 12+ YRS 00:00:00 [place] Med ical VACCINE Branch SARS-COV-2 COVID-19 2020-08-29 Completed Unive rsity of MODERNA 12+ YRS 00:00:00 [place] Med ical VACCINE Branch SARS-COV-2 COVID-19 2020-08-29 Completed Unive rsity of MODERNA 12+ YRS 00:00:00 [place] Med ical VACCINE Branch SARS-COV-2 COVID-19 2020-08-29 Completed Unive rsity of MODERNA 12+ YRS 00:00:00 [place] Med ical VACCINE Branch SARS-COV-2 COVID-19 2020-08-29 Completed Unive rsity of MODERNA 12+ YRS 00:00:00 [place] Med ical VACCINE Branch SARS-COV-2 COVID-19 2020-08-29 Completed Unive rsity of MODERNA 12+ YRS 00:00:00 [place] Med ical VACCINE Branch SARS-COV-2 COVID-19 2020-08-29 Completed Unive rsity of MODERNA 12+ YRS 00:00:00 [place] Med ical VACCINE Branch SARS-COV-2 COVID-19 2020-08-29 Completed Unive rsity of MODERNA 12+ YRS 00:00:00 [place] Med ical VACCINE Branch SARS-COV-2 COVID-19 2020-08-29 Completed Unive rsity of MODERNA 12+ YRS 00:00:00 [place] Med ical VACCINE Branch SARS-COV-2 COVID-19 2020-08-29 Completed Unive rsity of MODERNA 12+ YRS 00:00:00 [place] Med ical VACCINE Branch SARS-COV-2 COVID-19 2020-08-29 Completed Unive rsity of MODERNA 12+ YRS 00:00:00 [place] Med ical VACCINE Branch SARS-COV-2 COVID-19 2020-08-29 Completed Unive rsity of MODERNA 12+ YRS 00:00:00 [place] Med ical VACCINE Branch SARS-COV-2 COVID-19 2020-08-29 Completed Unive rsity of MODERNA 12+ YRS 00:00:00 [place] Med ical VACCINE Branch SARS-COV-2 COVID-19 2020-08-29 Completed Unive rsity of MODERNA 12+ YRS 00:00:00 [place] Med ical VACCINE Branch SARS-COV-2 COVID-19 2020-08-29 Completed Unive rsity of MODERNA 12+ YRS 00:00:00 [place] Med ical VACCINE Branch SARS-COV-2 COVID-19 2020-08-29 Completed Unive rsity of MODERNA 12+ YRS 00:00:00 [place] Med ical VACCINE Branch SARS-COV-2 COVID-19 2020-08-29 Completed Unive rsity of MODERNA 12+ YRS 00:00:00 [place] Med ical VACCINE Branch SARS-COV-2 COVID-19 2020-08-29 Completed Unive rsity of MODERNA 12+ YRS 00:00:00 [place] Med ical VACCINE Branch SARS-COV-2 COVID-19 2020-08-29 Completed Unive rsity of MODERNA 12+ YRS 00:00:00 [place] Med ical VACCINE Branch SARS-COV-2 COVID-19 2020-08-01 Completed Unive rsity of MODERNA VACCINE 00:00:00 [place] Med ical Branch SARS-COV-2 COVID-19 2020-08-01 Completed Unive rsity of MODERNA VACCINE 00:00:00 [place] Med ical Branch SARS-COV-2 COVID-19 2020-08-01 Completed Unive rsity of MODERNA VACCINE 00:00:00 [place] Med ical Branch SARS-COV-2 COVID-19 2020-08-01 Completed Unive rsity of MODERNA VACCINE 00:00:00 [place] Med ical Branch SARS-COV-2 COVID-19 2020-08-01 Completed Unive rsity of MODERNA 12+ YRS 00:00:00 [place] Med ical VACCINE Branch SARS-COV-2 COVID-19 2020-08-01 Completed Unive rsity of MODERNA 12+ YRS 00:00:00 [place] Med ical VACCINE Branch SARS-COV-2 COVID-19 2020-08-01 Completed Unive rsity of MODERNA 12+ YRS 00:00:00 [place] Med ical VACCINE Branch SARS-COV-2 COVID-19 2020-08-01 Completed Unive rsity of MODERNA 12+ YRS 00:00:00 [place] Med ical VACCINE Branch SARS-COV-2 COVID-19 2020-08-01 Completed Unive rsity of MODERNA 12+ YRS 00:00:00 [place] Med ical VACCINE Branch SARS-COV-2 COVID-19 2020-08-01 Completed Unive rsity of MODERNA 12+ YRS 00:00:00 [place] Med ical VACCINE Branch SARS-COV-2 COVID-19 2020-08-01 Completed Unive rsity of MODERNA 12+ YRS 00:00:00 [place] Med ical VACCINE Branch SARS-COV-2 COVID-19 2020-08-01 Completed Unive rsity of MODERNA 12+ YRS 00:00:00 [place] Med ical VACCINE Branch SARS-COV-2 COVID-19 2020-08-01 Completed Unive rsity of MODERNA 12+ YRS 00:00:00 [place] Med ical VACCINE Branch SARS-COV-2 COVID-19 2020-08-01 Completed Unive rsity of MODERNA 12+ YRS 00:00:00 [place] Med ical VACCINE Branch SARS-COV-2 COVID-19 2020-08-01 Completed Unive rsity of MODERNA 12+ YRS 00:00:00 [place] Med ical VACCINE Branch SARS-COV-2 COVID-19 2020-08-01 Completed Unive rsity of MODERNA 12+ YRS 00:00:00 [place] Med ical VACCINE Branch SARS-COV-2 COVID-19 2020-08-01 Completed Unive rsity of MODERNA 12+ YRS 00:00:00 [place] Med ical VACCINE Branch SARS-COV-2 COVID-19 2020-08-01 Completed Unive rsity of MODERNA 12+ YRS 00:00:00 [place] [facility] ical VACCINE Branch SARS-COV-2 COVID-19 2020-08-01 Completed Unive rsity of MODERNA 12+ YRS 00:00:00 [facility] ical VACCINE Branch SARS-COV-2 COVID-19 2020-08-01 Completed Unive rsity of MODERNA 12+ YRS 00:00:00 [facility] ical VACCINE Branch SARS-COV-2 COVID-19 2020-08-01 Completed Unive rsity of MODERNA 12+ YRS 00:00:00 [facility] ical VACCINE Branch SARS-COV-2 COVID-19 2020-08-01 Completed Unive rsity of MODERNA 12+ YRS 00:00:00 [facility] V[facility] SARS-COV-2 COVID-19 2020-08-01 Completed Unive rsity of MODERNA 12+ YRS 00:00:00 [facility] VACCINE Branch Influenza Virus 2017-12-28 Completed Universit y of Vaccine 00:00:00 [facility] Influenza Virus 2017-12-28 Completed Universit y of Vaccine 00:00:00 [facility] Influenza Virus 2017-12-28 Completed Universit y of Vaccine 00:00:00 [facility] Influenza Virus 2017-12-28 Completed Universit y of Vaccine 00:00:00 [facility] Influenza Virus 2017-12-28 Completed Universit y of Vaccine 00:00:00 [facility] Influenza Virus 2017-12-28 Completed Universit y of Vaccine 00:00:00 [facility] Influenza Virus 2017-12-28 Completed Universit y of Vaccine 00:00:00 [facility] Influenza Virus 2017-12-28 Completed Universit y of Vaccine 00:00:00 [facility] Influenza Virus 2017-12-28 Completed Universit y of Vaccine 00:00:00 [facility] Influenza Virus 2017-12-28 Completed Universit y of Vaccine 00:00:00 [facility] Influenza Virus 2017-12-28 Completed Universit y of Vaccine 00:00:00 [facility] Influenza Virus 2017-12-28 Completed Universit y of Vaccine 00:00:00 [facility] Influenza Virus 2017-12-28 Completed Universit y of Vaccine 00:00:00 [facility] Influenza Virus 2017-12-28 Completed Universit y of Vaccine 00:00:00 [facility] Influenza Virus 2017-12-28 Completed Universit y of Vaccine 00:00:00 [facility] Influenza Virus 2017-12-28 Completed Universit y of Vaccine 00:00:00 [facility] Influenza Virus 2017-12-28 Completed Universit y of Vaccine 00:00:00 [facility] Influenza Virus 2017-12-28 Completed Universit y of Vaccine 00:00:00 [facility] Influenza Virus 2017-12-28 Completed Universit y of Vaccine 00:00:00 [facility] Influenza Virus 2017-12-28 Completed Universit y of Vaccine 00:00:00 [facility] Influenza Virus 2017-12-28 Completed Universit y of Vaccine 00:00:00 [facility] Influenza Virus 2017-12-28 Completed Universit y of Vaccine 00:00:00 [facility] Influenza Virus 2017-12-28 Completed Universit y of Vaccine 00:00:00 [facility] Vital Signs Vital Name Observation Time Observation Value Comments Source Systolic blood 2022-09-27 21:22:00 119 mm[Hg] Univer sity of pressure [facility] Diastolic blood 2022-09-27 21:22:00 74 mm[Hg] Unive rsity of pressure [facility] Heart rate 2022-09-27 21:22:00 66 /min Universi ty [facility] Respiratory rate 2022-09-27 21:22:00 18 /min [facility] Body height 2022-09-27 21:22:00 167.6 cm Universi ty [facility] Body weight 2022-09-27 21:22:00 79.833 [facility] BMI 2022-09-27 21:22:00 28.41 [facility]m2 [facility] O[facility] saturation in 2022-09-27 21:22:00 97 /min [facility] Arterial blood by [facility] Pulse oximetry Branch Systolic blood 2022-09-06 18:38:00 116 mm[Hg] Univer sity of pressure [facility] Diastolic blood 2022-09-06 18:38:00 77 mm[Hg] Unive rsity of pressure [facility] Heart rate 2022-09-06 18:38:00 70 /min [facility] Body temperature 2022-09-06 18:38:00 36.67 Dora [facility] Respiratory rate 2022-09-06 18:38:00 18 /min [facility] Body height 2022-09-06 18:38:00 167.6 cm [facility] Body weight 2022-09-06 18:38:00 83.553 kg [facility] BMI 2022-09-06 18:38:00 29.73 kg/m2 [facility] Oxygen saturation in 2022-09-06 18:38:00 98 /min University of Arterial blood by [facility] giancarlo Pulse oximetry Branch Systolic blood 2022-08-06 14:52:00 116 mm[Hg] Univer sity of [facility] Diastolic blood 2022-08-06 14:52:00 78 mm[Hg] Unive rsity of [facility] Heart rate 2022-08-06 14:52:00 58 /min [facility] Respiratory rate 2022-08-06 14:52:00 18 /min Univ [facility] Body height 2022-08-06 14:52:00 167.6 cm [facility] Body weight 2022-08-06 14:52:00 84.369 kg [facility] BMI 2022-08-06 14:52:00 30.02 kg/m2 [facility] Oxygen saturation in 2022-08-06 14:52:00 97 /min University of Arterial blood by [facility] Pulse oximetry Branch Systolic blood 2022-02-26 15:56:00 116 mm[Hg] Univer [facility]ity of [facility] Diastolic blood 2022-02-26 15:56:00 77 mm[Hg] Unive rsity of [facility] Heart rate 2022-02-26 15:56:00 79 /min [facility] Respiratory rate 2022-02-26 15:56:00 18 /min Univ [facility] Body height 2022-02-26 15:56:00 167.6 cm [facility] Body weight 2022-02-26 15:56:00 86.183 kg Universi ty of [facility] BMI 2022-02-26 15:56:00 30.67 kg/m2 Universi ty [facility] Oxygen saturation in 2022-02-26 15:56:00 98 /min University of Arterial blood by [facility] Pulse oximetry Branch Systolic blood 2021-08-02 20:02:00 119 mm[Hg] Univer sity of pressure [facility] Diastolic blood 2021-08-02 20:02:00 81 mm[Hg] Unive rsity of pressure [facility] Heart rate 2021-08-02 20:02:00 69 /min Universi [facility] Body temperature 2021-08-02 20:02:00 36.67 Dora [facility] Respiratory rate 2021-08-02 20:02:00 18 /min [facility] Body height 2021-08-02 20:02:00 167.6 cm Universi [facility] Body weight 2021-08-02 20:02:00 80.74 kg [facility] BMI 2021-08-02 20:02:00 28.73 kg/m2 [facility] Oxygen saturation in 2021-08-02 20:02:00 99 /min University of Arterial blood by [facility] Pulse oximetry Branch Procedures Procedure Date / Time Performing Clinician Source Performed ASSIGNMENT OF BENEFITS 2022-09-06 18:26:21 Doctor Unassigned, Un [facility] HEAD NECK 2022-08-17 19:33:00 Bettye Deleon [facility] FREE T4 2022-08-06 15:26:00 Betyte Deleon [facility] COMP. METABOLIC PANEL 2022-08-06 15:26:00 Bettye Deleon [facility] ([id number]) [facility] LIPID PANEL ([id number])(TOTAL 2022-08-06 15:26:00 Bettye Deleon [facility] CHOLESTEROL, [facility] TRIGLYCERIDES, HDL) CBC WITH DIFF 2022-08-06 15:26:00 Bettye Deleon [facility] FREE T3 2022-08-06 15:26:00 Bettye Deleon [facility] C-REACTIVE PROTEIN 2022-08-06 15:26:00 Bettye Deleon [facility] SEDIMENTATION RATE 2022-08-06 15:26:00 Bettye Deleon [facility] ANTI-NUCLEAR ANTIBODY 2022-08-06 15:26:00 Bettye Deleon [facility] SCREEN [facility] CBC WITH DIFF 2022-02-26 17:03:00 Bettye Deleon [facility] URIC ACID 2022-02-26 17:03:00 Bettye Deleon [facility] RHEUMATOID FACTOR 2022-02-26 17:03:00 Bettye Deleon [facility] C-REACTIVE PROTEIN 2022-02-26 17:03:00 Bettye Deleon [facility] FREE T4 2022-02-26 17:03:00 Bettye Deleon [facility] THYROID STIMULATING 2022-02-26 17:03:00 Bettye Deleon [facility] HORMONE [facility] COMP. METABOLIC PANEL 2022-02-26 17:03:00 Bettye Deleon [facility] ([id number]) [facility] SEDIMENTATION RATE 2022-02-26 17:03:00 Bettye Deleon [facility] GLYCOSYLATED HEMOGLOBIN 2022-02-26 17:03:[address] [facility] (A1C) [facility] ANTI-NUCLEAR ANTIBODY 2022-02-26 17:03:00 Bettye Deleon [facility] SCREEN [facility] ANTI-NUCLEAR ANTIBODY 2022-02-26 17:03:00 Bettye Deleon [facility] TITER [facility] VITAMIN D, 25-OH 2022-02-26 17:03:00 [facility] 2022-02-26 17:03:00 [facility] ONLY - RPR 2022-02-26 17:03:00 Bettye Deleon [facility] HIV 1/2 AG-AB WITH REFLEX 2022-02-26 17:03:00 [facility] ANTI-NUCLEAR 2022-02-26 17:03:00 Magno [facility] ANTIBODY-PATHOLOGIST [facility] INTERPRETATION SARS-COV-2 COVID-19 2021-08-11 20:58:34 Doctor Unassigned, [facility] VACCINE BOOSTER,0.25ML,IM [facility] (MODERNA) CONSENT/REFUSAL FOR 2021-08-02 19:56:59 Doctor Unassigned, [facility] DIAGNOSIS AND TREATMENT [facility] ASSIGNMENT OF BENEFITS 2021-08-02 19:56:49 Doctor Unassigned, Un [facility] [place] [facility] Encounters Start End Encounter Admission Attending Care Care Encounter Source Date/Time Date/Time Type Type Clinicians Facility Department ID 2022-10-01 2022-10-01 Car Refinisher 2, Adc Lab [facility] 1.2.840.114 [id number] Univers 13:00:00 13:15:00 Visit Urszula Montano 350.1.13.10 [place] [phone] Sc dical NAL [address] [place] [address] 2022-10-01 2022-10-01 Outpatient Alida MONTANO [facility] [id number] Univers 13:00:00 13:00:00 URSZULA thompson [facility] 2022-09-27 2022-09-27 Outpatient Alida MONTANO [facility] [id number] Univers 16:00:00 16:30:34 URSZULA thompson [facility] 2022-09-27 2022-09-27 Office Charmaine [facility] 1.2.840.114 [id number] Univers 16:00:00 16:30:34 Visit Urszula MARCELO 350.1.13.10 i Mario Alberto [place].2.[place] [phone] Sc dical NAL 044 [facility] 2022-09-06 2022-09-06 Outpatient R CHARMAINE [facility] [id number] Univers 13:30:00 14:07:15 URSZULA ity [facility] 2022-09-06 2022-09-06 [facility] 1.2.840.114 [id number] Univers 13:30:00 14:07:15 Visit Urszula MARCELO 350.1.13.10 i ty of [place] 4.2.7.2.[place] [phone] Sc dicsukumar NAL [address] [place] [address] 2022-09-06 2022-09-06 Orders Doctor ERIN 1.2.840.114 [id number] Univers 00:00:00 00:00:00 Only Unassigned, SHEFALI 350.1.13.10 ity of [place] [facility] 4.2.7.2.686 Naveed as [phone] [address] 2022-08-17 2022-08-17 Outpatient R BETTYE DELEON [facility] [id number] Univers 14:03:05 23:59:00 BETTYE DELEON ity [facility] 2022-08-17 2022-08-17 [facility] [id number] Univers 14:03:05 23:59:00 Encounter Bettye SPECIALTY 350.1.13.10 ity of [facility] 4.2.7.2.[place] C[place] AT [phone] Sc teresa CARLOSSamir 806 [facility] 2022-08-13 2022-08-13 Telephone [facility] 1.2.840.114 [id number] Univers 00:00:00 00:00:00 Bettye MARCELO 350.1.13.10 ity of [place] 4.2.7.2.[place] [phone] Sc dicsukumar NAL [address] [place] [address] 2022-08-07 2022-08-07 Telephone [facility] 1.2.840.114 [id number] Univers 00:00:00 00:00:00 Bettye MARCELO 350.1.13.10 ity of [place] 4.2.7.2.686 [place] [phone] Sc dical NAL 044 [facility] 2022-08-06 2022-08-06 Outpatient R KARIN DELEONTracySilverio [facility] [id number] Univers 10:30:00 10:34:43 KARIN DELEONTracySilverio ity of [facility] 2022-08-06 2022-08-06 Car Refinisher 2, Adc Lab [facility] 1.2.840.114 [id number] [facility] 10:30:00 10:34:43 Visit Bettye Deleon 350.1.13.1 0 it[place] of [place] 4.2.7.2.686 [place] [id number] Sc teresa CAMARILLO 353 [facility] 2022-08-06 2022-08-06 Office Pancho [facility] 1.2.840.114 [id number] Univers 09:30:00 10:15:17 Visit Bettye MARCELO 350.1.13.10 ity of [place] 4.2.7.2.686 [place] [phone] Sc dicsukumar CAMARILLO 044 [facility] 2022-08-01 2022-08-01 Telephone Pancho [facility] 1.2.840.114 [id number] [facility] 00:00:00 00:00:00 Bettye MARCELO 350.1.13.10 ity of [place] 4.2.7.2.686 [place] [id number] Sc dicsukumar CAMARILLO [address] [place] [address] 2022-06-18 2022-06-18 Outpatient R PANCHO BETTYE [facility] [id number] Univers 09:30:00 09:30:00 KARIN DELEONTracySilverio ity [facility] 2022-02-28 2022-02-28 Telephone Pancho, [facility] 1.2.840.114 [id number] Univers 00:00:00 00:00:00 Bettye MARCELO 350.1.13.10 ity of [place] 4.2.7.2.686 [place] [phone] Sc dical NAL 044 [facility] 2022-02-26 2022-02-26 Car Refinisher Joaquín Jimenez Lab Main [facility] 1.2.8 40.114 [id number] Univers 12:00:00 12:15:00 Visit Bettye Deleon MOLL[place]AND 350.1.13.1 0 ity [facility] 4.2.7.2.686 [place] [phone] Sc dical NAL 353 [facility] 2022-02-26 2022-02-26 Outpatient R PANCHO, BETTYE [facility] [id number] Univers 10:30:00 11:30:01 PANCHOBETTYE VILLALTA [facility] 2022-02-26 2022-02-26 Office Pancho [facility] 1.2.840.114 [id number] Univers 10:30:00 11:30:01 Visit Bettye MARCELO 350.1.13.10 ity of [place] 4.2.7.2.686 [place] [phone] Sc dical NAL [address] [place] [address] 2022-02-21 2022-02-21 Outpatient R PANCHO BETTYE [facility] [id number] Univers 16:00:00 16:00:00 BETTYE DELEON [facility] 2021-08-11 2021-08-11 Imm/Inj Vaccine, [facility] 1.2.840.114 [id number] Univers 16:00:00 16:10:00 Visit Giorgio Wiggins 350.1.13 .10 ity [facility] 4.2.7.2.[place] [phone] Sc dical NAL 044 [facility] 2021-08-11 2021-08-11 Outpatient R FELICIANO [facility] [id number] Univers 16:00:00 16:00:00 GIORGIO thompson [facility] 2021-08-02 2021-08-02 Urgent Wally [facility] 1.2.840.114 [id number] Univers 15:00:00 15:20:00 [facility] 350.1.13.10 i ty of [place] 4.2.7.2.686 Naveed as SILVESTRE?BLEA [phone] [facility] LINDA [address] MEDICAL OFFICE BUILDING 2021-08-02 2021-08-02 Outpatient R WALLY [facility] [id number] Univers 15:00:00 15:00:00 KAVIN messery o f [facility] 2021-08-02 2021-08-02 Orders Doctor ERIN 1.2.840.114 [id number] Univers 00:00:00 00:00:00 Only Unassigned, SHEFALI 350.1.13.10 ity of [place] [facility] 4.2.7.2.686 Naveed as [id number] [address] 2021-01-03 2021-01-03 Outpatient R WALLY [facility] [id number] Univers 10:45:00 10:45:00 KAVIN thompson o [facility] 2021-01-03 2021-01-03 Laboratory Only, Ang Db Test [facility] 1.2.8 40.114 [id number] Univers 10:27:27 10:37:27 Only [facility] 350.1.13.10 ity of [place] 4.2.7.2.686 Naveed as Silvestre?Blea [phone] [address] Medical Office [facility] 2020-12-16 2020-12-16 Outpatient R VIOLETTE, [facility] [id number] Univers 15:00:00 15:00:00 ATTENDING ity of [facility] 2020-12-15 2020-12-15 Telephone Jose Cruz [facility] 1.2.840.114 [id number] Univers 00:00:00 00:00:00 Malini Marcelo 350.1.13.10 ity of [place].2.[place] [phone] Sc teresa [facility] [address] [facility] 2020-09-20 2020-09-20 Outpatient R POLLO [facility] [id number] Univers 16:20:00 16:20:00 FABIENNE ity [facility] 2020-08-292020-08-29 [facility] [id number] Univers 09:40:00 09:40:00 HENNY ity [facility] 2020-08-01 2020-08-[address] [facility] [id number] Univers 09:40:00 09:40:00 ity of [facility] 2020-08-01 2020-08-01 Outpatient Al[facility] [id number] Univers 09:40:00 09:40:00 HENNY ity [facility] 2020-07-27 2020-07-27 Telephone [facility] 1..840.114 [id number] Univers 00:00:00 00:00:00 Fabienne Marcelo 350.1.13.10 i ty of [place]2.7.2.[place] [phone] [facility] [address] [facility] 2020-07-06 2020-07-06 Office [facility] 1.2.840.114 [id number] Univers 13:27:44 14:10:27 Visit Fabienne Marcelo 350.1.13.10 i ty of [place] 4.2.7.2.686 [place] [phone] Sc dical nal 044 [facility] 2020-07-06 2020-07-06 Outpatient R SIM[facility]AGABEROBINSONBR[facility] [id number] Univers 13:20:00 13:20:00 FABIENNE thompson [facility] 2020-06-29 2020-06-29 Car Refinisher Barbara, Joaquín Lab Main [facility] 1.2.8 40.114 [id number] Univers 15:44:22 15:59:22 Visit Fabienne Field 350.1.13.10 ity of [place] 4[place]2.7.2.686 [place] [phone] Sc dicpr nal 353 [facility] 2020-06-29 2020-06-29 Telemedici [facility] 1.2.840.114 [id number] Univers 08:15:51 11:42:11 ne Visit Fabienne Marcelo 350.1.13.10 [place] of [place].7.2.[place] Profess[place] [phone] [address] 2020-06-29 2020-06-29 [facility] [id number] Univers 09:40:00 09:40:00 PETER ity of [facility] 2020-06-29 2020-06-29 Orders Doctor ERIN 1.2.840.114 [id number] Univers 00:00:00 00:00:00 Only Unassigned, SHEFALI 350.1.13.10 ity of [place] [facility] 4.2.7.2.686 Naveed as [phone] [address] 2020-06-29 2020-06-29 Nurse Sully Carney 1.2.840.114 [id number] Univers 00:00:00 00:00:00 Triage SHEFALI 350.1.13.10 it y of [facility] 4.2.7.2.[phone] [facility] [address] 2020-06-29 2020-06-29 Telephone [facility] 1.2.840.114 [id number] Univers 00:00:00 00:00:[address] [facility] 350.1.13.10 it y of [place] 4.2.7.2.686 Naveed as PROFESSIO [phone] [address] OFFICE [facility] ONE 2020-06-28 2020-06-28 Telephone [facility] 1.2.840.114 [id number] Univers 00:00:00 00:00:00 [facility] 350.1.13.10 it y of [place] 4.2.7.2.686 Naveed as Professio [phone] [address] Office [facility] One 2020-06-27 2020-06-27 Refill [facility] 1.2.840.114 [id number] Univers 00:00:00 00:00:00 Fabienne Lainezton 350.1.13.10 i ty of [place].2.[place] [phone] [address] 2020-06-24 2020-06-24 [facility] [id number] Univers 16:20:00 16:20:00 FABIENNE thompson [facility] 2020-06-21 2020-06-21 Office [facility] 1.2.840.114 [id number] Univers 15:04:12 15:57:40 Visit Fabienne Marcelo 350.1.13.10 i ty diego NegreteOneco 4.2.[place].2.[place] [phone] [address] 2020-06-21 2020-06-21 [facility] [id number] Univers 15:00:00 15:00:00 FABIENNE thompson [facility] 2020-06-21 2020-06-21 Orders Doctor ERIN 1.2.840.114 [id number] Univers 00:00:00 00:00:00 Only Unassigned, SHEFALI 350.1.13.10 ity of [place] [facility] 4.2.7.2.686 Naveed as [phone] [address] 2020-06-09 2020-06-09 Urgent Provider, Ang Ur[facility] 1.2.840.114 [id number] Univers 17:32:50 17:49:33 Erin Kaminski 350.1.13.10 [place]y [place] 4.2.7.2.686 Naveed as Professio [phone] [address] Office Building One 2020-06-09 2020-06-09 Outpatient R [facility] [id number] Univers 17:20:00 17:20:00 ity [facility] 2020-06-09 2020-06-09 Letter Doctor ERIN 1.2.840.114 [id number] Univers 00:00:00 00:00:00 (Out) Unassigned, SHEFALI 350.1.13.10 ity of [place] [facility] 4.2.7.2.686 Naveed as [phone] [address] 2020-02-01 2020-02-01 Urgent Provider, [facility] 1.2.840.114 [id number] Univers 14:17:19 15:27:37 Care Awais Ennisa [facility] 350.1.13.10 ity of [place] 4.2.7.2.686 Naveed as Professio [phone] [facility] [address] Office Building One 2020-02-01 2020-02-01 Outpatient R [facility] [id number] Univers 14:00:00 14:00:00 ity of [facility] 2020-02-01 2020-02-01 Letter Doctor ERIN 1.2.840.114 [id number] Univers 00:00:00 00:00:00 (Out) Unassigned, SHEFALI 350.1.13.10 ity of [place] [facility] 4.2.7.2.686 Naveed as [phone] [address] Results Test Description Test Test Results Result Source Time Comments Comments ANTI-NUCLEAR 2022-02- SUNDAR - Pathologist Unive rsity of ANTIBODY-PATHOLOGI 02 InterpretationANA [facility] INTERPRETATION 21:55:18 HEp-2 IIFA Pathologist Branch Interpretation Report Patient Name: Roberto Carlos Nunez ? ?Antinuclear Antibody (SUNDAR) Test (Anti-Cell Antibodies Test) Indirect Immunofluorescence Assay on HEp-2 Cells Screening titer: 1:80 (adults, > 18 years old), 1:40 (pediatrics, <= 18 years old)?Result: The antinuclear antibody (SUNDAR) test is positive, demonstrating the AC-8/9/10-Nucleolar Pattern with a titer of 1:160. Additionally, a Cytoplasmic Pattern with a titer of 1:160 is observed. A titer greater than or equal to 1:160 is generally considered to be clinically significant. ? Remarks: The AC-8/9/10-Nucleolar Pattern is associated with autoantibodies to PM/Scl, U3RNP/fibrillarin, RNA polymerase I, Th/To, and hUBF/NOR-90. This pattern is primarily associated clinically with systemic sclerosis. However, the nucleolar pattern may also be seen in systemic sclerosis-autoimmune myopathy overlap syndrome, Raynaud's phenomenon, Sjogren's syndrome, autoimmune hepatitis, other autoimmune disorders, and malignancy. Cytoplasmic staining patterns observed on the indirect immunofluorescence assay may be suggestive of a wide range of autoantibodies, including those targeted against mitochondrial antigens (AMA), smooth muscle antigens (ASMA), actin, alpha-actinin, GW182, ribosomal P proteins, Lizz-1, etc. Clinical associations include HCV, autoimmune hepatitis, systemic autoimmune rheumatic disease such as systemic lupus erythematosus, Raynaud's phenomenon, and primary biliary cirrhosis (among other conditions). For more information (including clinical associations), the International Consensus on SUNDAR Patterns (ICAP) guidelines can be found at www.anapatterns.org. ?A diagnosis cannot be based exclusively on SUNDAR detection and/or pattern and thus should be made via the integration of patient history, physical exam findings, and other diagnostic tests as clinically indicated. ? Candice Lamas MD ?02/28/2022 ?4:55 PM02/28/2022 4:55 PM [facility] ANTI-NUCLEAR ANTIBODY TITER 2022-02-28 21:51:44 Test Item Value Reference Range Interpretation Comme nts SUNDAR Titer by IFA (test code 1:160 = [id number]) SUNDAR Pattern (test code = Nucleolar Cyt oplasmic Pattern with a [id number]) titer of 1:160 also observed. CACHORRO (test code = CACHORRO) Anti-nuclear antibodies are seen in a variety of autoimmune diseases and may also be seen in low titers in otherwise normal individuals without evidence of autoimmune disease. In general, a titer greater than or equal to 1:160 is considered significant. For further information, contact the appropriate Specialist. For additional SUNDAR tests, refer to the Laboratory Test Directory. The specimen will be held for 7 days. [facility] [id number] 22:35:23 Test Item Value Reference Range Interpretation Comments SUNDAR (test code = Positive Negative A [id number]) CACHORRO (test code = CACHORRO) Negative: ?No Anti-Nuclear Antibodies detected by IFA. Positive: ?SUNDAR IFA screen performed with a 1:80 dilution in adults and a 1:40 dilution in pediatrics. ?A titer is performed and reported separately when the SUNDAR is "Positive" or when "Cytoplasmic staining is observed." Lab Interpretation (test Abnormal code = 97986-1) [facility] Center[facility]HE[facility] [id number] 16:24:07 Test Item Value Reference Range Interpretation Comments RF (test code = See_Comment [Automated message] [id number]) The system [employer] generated this result transmitted ref erence range: <20 IU/m L. The reference range was not used to int erpret this result as normal/abnormal . Lab Interpretation (test Normal code = 66975-8) [facility]-REACTIVE [id number] 16:22:54 Test Item Value Reference Range Interpretation Comments CRP (test code = 1.8 mg/dL See_Comment H [Automated message] [id number]) The system [employer] generated this result transmit jarrell reference range : <=0.8. The refe rence range was not u sed to interpret th is result as normal/abnormal . Lab Interpretation (test Abnormal code = 03428-6) [facility] OR LISSET ONLY - [id number] 08:30:43 Test Item Value Reference Range Interpretation Comments RPR (Qualitative) (test code = Nonreactive Nonreactive 20375-5) Lab Interpretation (test code = Normal 88708-1) [facility], [id number] 21:08:50 Test Item Value Reference Range Interpretation Comments VIT D 25OH (test code = 29 ng/mL 25-80 80614-0) CACHORRO (test code = CACHORRO) Deficiency: <20 ng/mLInsufficiency : 20-24 ng/mLOptimal: 25-80 ng/mL Lab Interpretation (test Normal code = 54625-5) [facility] CenterTHY[facility]ID STIMULATING [id number] 20:07:43 Test Item Value Reference Range Interpretation Comments TSH (test code = See_Comment H [Automated message] [id number]) The system [employer] generated this result transmitted ref erence range: 0.45 - 4 .70 mIU/L. The refe rence range was not u sed to interpret this result as normal/abnor mal. Lab Interpretation (test Abnormal code = 62093-4) [facility]FREE [id number] 19:49:18 Test Item Value Reference Range Interpretation Comments FREE T4 (test code = See_Comment L [Autom ated message] [id number]) The system [employer] generated this result transmitted ref erence range: 0.78 - 2 .20 ng/dL:. The ref erence range was not u sed to interpret this result as normal/abnor mal. Lab Interpretation (test Abnormal code = 27187-2) [facility] CenterGLYCOSYLATED HEMOGLOBIN (A1C)2022-02-26 19:25:07 Test Item Value Reference Range Interpretation Comments HGB A1C (test code = 5.2 % 4.0-5.7 4548-4) CACHORRO (test code = CACHORRO) Reference RangesNormal: <5.7%Prediabetes: 5.7 - 6.4%Diabetes: > 6.5% Lab Interpretation (test Normal code = 34984-3) [facility] CenterHIV 1/2 AG-AB WITH [id number] 19:11:33 Test Item Value Reference Range Interpretation Comments HIV Negative Negative Semi-quantitative (test code = 43094-4) CACHORRO (test code = Non-reactive for HIV-1 CACHORRO) antigen and HIV-1/HIV-2 antibodies. ?No laboratory evidence of HIV infection. ?Repeat in 2-4 weeks if acute HIV infection is suspected. [facility] [id number] 18:48:31 Test Item Value Reference Range Interpretation Comments FREE T3 (test code = 2139611530) 1.99 pg/mL 2.77-5.27 L Lab Interpretation (test code = Abnormal 93386-7) [facility]. METABOLIC PANEL (34443)2022-02-26 18:29:44 Test Item Value Reference Range Interpretation Comments NA (test code = 140 mmol/L 135-145 8453028597) K (test code = 4.5 mmol/L 3.5-5.0 4811234828) CL (test code = 102 mmol/L 98-108 1776639033) CO2 TOTAL (test code 31 mmol/L 23-31 = 3783708164) AGAP (test code = 2-16 4488494366) BUN (test code = 13 mg/dL 7-23 5242737730) GLUCOSE (test code = 88 mg/dL 70-110 3689395313) CREATININE (test code 1.18 mg/dL 0.60-1.25 = 1926508157) TOTAL BILI (test code 0.5 mg/dL 0.1-1.1 = 2689714376) CALCIUM (test code = 9.4 mg/dL 8.6-10.6 0507900606) T PROTEIN (test code 7.0 g/dL 6.3-8.2 = 5719948182) ALBUMIN (test code = 4.4 g/dL 3.5-5.0 9782273116) ALK PHOS (test code = 73 U/L 34-122 5009257883) ALTv (test code = 22 U/L 5-50 2-6) AST(SGOT) (test code 26 U/L 13-40 = 6606854794) eGFR (test code = mL/min/1.73m2 3480071919) CACHORRO (test code = CACHORRO) Association of Glomerular Filtration Rate (GFR) and Staging of Kidney Disease* + + +- +| GFR (mL/min/1.73 m2) ?| With Kidney Damage ?| ?Without Kidney Damage+ ------+ ----+ ------+| ?>90 ?| ?Stage one ?| ? Normal ?+ -+ + -+| ?60-89 ?| ?Stage two ?| ? Decreased GFR ? + + +- +| ?30-59 ?| ?Stage three ?| ? Stage three ? + + +- +| ?15-29 ?| ?Stage four ? | ? Stage four ?+ -+ + -+| ?<15 (or dialysis) ? ?| ?Stage five ? | ? Stage five ?+ -+ + -+ *Each stage assumes the associated GFR level has been in effect for at least three months. ?Stages 1 to 5, with or without kidney disease, indicate chronic kidney disease. Notes: Determination of stages one and two (with eGFR >59mL/min/1.73 m2) requires estimation of kidney damage for at least three months as defined by structural or functional abnormalities of the kidney, manifested by either:Pathological abnormalities or Markers of kidney damage (including abnormalities in the composition of the blood or urine or abnormalities in imaging tests). [facility] CenterURIC [id number] 18:29:24 Test Item Value Reference Range Interpretation Comments URIC ACID (test code = 7713444211) 3.4 mg/dL 3.6-8.0 L Lab Interpretation (test code = Abnormal 74695-5) [facility] CenterSEDIMENTATION [id number] 17:35:44 Test Item Value Reference Range Interpretation Comments ESR (test code = See_Comment H [Automated message] 42991-0) The system whic h generated this result transmitted ref erence range: 0 - 10 m m/HR. The reference r dorcas was not used to interpret this result as normal/abnor mal. Lab Interpretation (test Abnormal code = 06026-4) [facility] WITH [id number] 17:13:10 Test Item Value Reference Range Interpretation Comments WBC (test code = See_Comment [Automated 7690-2) message] The sy stem which generated this result transmitted reference range : 4.20 - 10.70 10*3/?L. The reference range was not used to interpret this result as normal/abnormal . RBC (test code = See_Comment L [Automated 789-8) message] The sy stem which generated this result transmitted reference range : 4.26 - 5.52 10*6/?L. The reference range was not used to interpret this result as normal/abnormal . HGB (test code = 13.6 g/dL 12.2-16.4 718-7) HCT (test code = 39.4 % 38.4-49.3 4544-3) MCV (test code = 92.9 fL 81.7-95.6 787-2) MCH (test code = 32.1 pg 26.1-32.7 785-6) MCHC (test code = 34.5 g/dL 31.2-35.0 786-4) RDW-SD (test code = 41.5 fL 38.5-51.6 58415-8) RDW-CV (test code = 12.1 % 12.1-15.4 788-0) PLT (test code = See_Comment [Automated 777-3) message] The sy stem which generated this result transmitted reference range : 150 - 328 10*3/ ?L. The reference r dorcas was not used to interpret this result as normal/abnormal . MPV (test code = 10.0 fL 9.8-13.0 66623-6) NRBC/100 WBC (test See_Comment [Automat ed code = 5665285974) message] The system which generated this result transmitted reference range : 0.0 - 10.0 /100 WBCs. The refer ence range was not u sed to interpret th is result as normal/abnormal . NRBC x10^3 (test code See_Comment [Auto mated = 4715236461) message] The s ystem which generated this result transmitted reference range : 10*3/?L. The reference range was not used to interpret this result as normal/abnormal . GRAN MAT (NEUT) % 71.3 % (test code = 770-8) IMM GRAN % (test code 0.90 % = 9948140608) LYMPH % (test code = 19.8 % 736-9) MONO % (test code = 5.0 % 5905-5) EOS % (test code = 2.6 % 713-8) BASO % (test code = 0.4 % 706-2) GRAN MAT x10^3(ANC) 3.28 10*3/uL 1.99-6.95 (test code = 6426548794) IMM GRAN x10^3 (test 0.04 10*3/uL 0.00-0.06 code = 1966860857) LYMPH x10^3 (test code 0.91 10*3/uL 1.09-3.23 L = 731-0) MONO x10^3 (test code 0.23 10*3/uL 0.36-1.02 L = 742-7) EOS x10^3 (test code = 0.12 10*3/uL 0.06-0.53 711-2) BASO x10^3 (test code 0.01-0.09 = 704-7) Lab Interpretation Abnormal (test code = 33671-1) [facility] WITH [id number] 17:13:10 Test Item Value Reference Range Interpretation Comments WBC (test code = See_Comment [Automated 7890-2) message] The sy stem which generated this result transmitted reference range : 4.20 - 10.70 10*3/?L. The reference range was not used to interpret this result as normal/abnormal . RBC (test code = See_Comment L [Automated 539-8) message] The sy stem which generated this result transmitted reference range : 4.26 - 5.52 10*6/?L. The reference range was not used to interpret this result as normal/abnormal . HGB (test code = 13.6 g/dL 12.2-16.4 718-7) HCT (test code = 39.4 % 38.4-49.3 4544-3) MCV (test code = 92.9 fL 81.7-95.6 787-2) MCH (test code = 32.1 pg 26.1-32.7 785-6) MCHC (test code = 34.5 g/dL 31.2-35.0 786-4) RDW-SD (test code = 41.5 fL 38.5-51.6 12001-7) RDW-CV (test code = 12.1 % 12.1-15.4 788-0) PLT (test code = See_Comment [Automated 777-3) message] The sy stem which generated this result transmitted reference range : 150 - 328 10*3/ ?L. The reference r dorcas was not used to interpret this result as normal/abnormal . MPV (test code = 10.0 fL 9.8-13.0 46004-2) NRBC/100 WBC (test See_Comment [Automat ed code = 9672721297) message] The system which generated this result transmitted reference range : 0.0 - 10.0 /100 WBCs. The refer ence range was not u sed to interpret th is result as normal/abnormal . NRBC x10^3 (test code See_Comment [Auto mated = 7433817166) message] The s ystem which generated this result transmitted reference range : 10*3/?L. The reference range was not used to interpret this result as normal/abnormal . GRAN MAT (NEUT) % 71.3 % (test code = 770-8) IMM GRAN % (test code 0.90 % = 2884707472) LYMPH % (test code = 19.8 % 736-9) MONO % (test code = 5.0 % 5905-5) EOS % (test code = 2.6 % 713-8) BASO % (test code = 0.4 % 706-2) GRAN MAT x10^3(ANC) 3.28 10*3/uL 1.99-6.95 (test code = 3102128620) IMM GRAN x10^3 (test 0.04 10*3/uL 0.00-0.06 code = 1467691208) LYMPH x10^3 (test code 0.91 10*3/uL 1.09-3.23 L = 731-0) MONO x10^3 (test code 0.23 10*3/uL 0.36-1.02 L = 742-7) EOS x10^3 (test code = 0.12 10*3/uL 0.06-0.53 711-2) BASO x10^3 (test code 0.01-0.09 = 704-7) Lab Interpretation Abnormal (test code = 47106-7) [facility]
--- NOTE | 2022-10-02 00:26 | ER ---
Nurse's Notes [facility] Name: Carlos Hernandez Age: 37 yrs Sex: Male : 1985 Arrival Date: 10/01/2022 Time: 22:44 Bed 10 Private MD: Diagnosis: Fracture of proximal phalanx of lesser toe(s) Presentation: 10/01 23:11 Chief complaint: Patient states: My right little toe got caught in someone's shirt vc1 during and it was out of place, I put it back in. Coronavirus screen: Vaccine status: Patient reports receiving the 2nd dose of the covid vaccine. plus booster; Moderna Client denies travel out of the [place] in the last 14 days. At this time, the client does not indicate any symptoms associated with coronavirus-19. Ebola Screen: Patient negative for fever greater than or equal to 101.5 degrees Fahrenheit, and additional compatible Ebola Virus Disease symptoms Patient denies exposure to infectious person. Patient denies travel to an Ebola-affected area in the 21 days before illness onset. No symptoms or risks identified at this time. Initial Sepsis Screen: Does the patient meet any 2 criteria? No. Patient's initial sepsis screen is negative. Does the patient have a suspected source of infection? No. Patient's initial sepsis screen is negative. Risk Assessment: Do you want to hurt yourself or someone else? Patient reports no desire to harm self or others. Onset of symptoms was October 01, 2022 at 20:00. 23:11 Method Of Arrival: Ambulatory vc1 23:11 Acuity: JULIETA 4 vc1 Triage Assessment: 23:17 General: Appears in no apparent distress. comfortable, Behavior is calm, cooperative, vc1 appropriate for age. Pain: Complains of pain in right fifth toe Pain does not radiate. Pain currently is 2 out of 10 on a pain scale. at worst was 9 out of 10 on a pain scale. EENT: No deficits noted. No signs and/or symptoms were reported regarding the EENT system. Neuro: Level of Consciousness is awake, alert, obeys commands, Oriented to person, place, time, situation, Appropriate for age. Cardiovascular: No deficits noted. Respiratory: Airway is patent Respiratory effort is even, unlabored, Respiratory pattern is regular, symmetrical. GI: No deficits noted. No signs and/or symptoms were reported involving the gastrointestinal system. : No deficits noted. No signs and/or symptoms were reported regarding the genitourinary system. Derm: No signs and/or symptoms reported regarding the dermatologic system. Musculoskeletal: Reports pain in right fifth toe. Historical: - Allergies: 23:16 No Known Allergies; vc1 - Home Meds: 23:16 levothyroxine 125 mcg tablet daily [Active]; vc1 - PMHx: 23:16 Hypothyroidism; vc1 - PSHx: 23:16 None; vc1 - Immunization history:: Client reports receiving the 2nd dose of the Covid vaccine. - Social history:: Smoking status: Patient/guardian denies using tobacco, but has a distant history of tobacco abuse. Screenin:26 [facility] ED Fall Risk Assessment (Adult) History of falling in the last 3 months, mb9 including since admission No falls in past 3 months (0 pts) Confusion or Disorientation No (0 pts) Intoxicated or Sedated No (0 pts) Impaired Gait No (0 pts) Mobility Assist Device Used No (0 pt) Altered Elimination No (0 pt) Score/Fall Risk Level 0 - 2 = Low Risk Oriented to surroundings, Maintained a safe environment, Educated pt \T\ family on fall prevention, incl call for assistance when getting out of bed. Abuse screen: Denies threats or abuse. Nutritional screening: No deficits noted. Tuberculosis screening: No symptoms or risk factors identified. Assessment: 23:25 Reassessment: see triage assessment. mb9 Vital Signs: 23:11 BP 107 / 73; Pulse 77; Resp 15; Temp 98.2; Pulse Ox 96% ; Weight 73.94 kg; Height 5 ft. vc1 6 in. ; Pain 2/10; 23:11 Body Mass Index 26.31 (73.94 kg, 167.64 cm) vc1 23:11 Pain Scale: Adult vc1 ED Course: 22:50 Patient arrived in ED. es 22:53 [facility]C [facility] kb 22:53 Dung Brown MD is Attending Physician. kb 23:16 Triage completed. vc1 23:17 Arm band placed on left wrist. vc1 23:25 Placed in gown. Bed in low position. Call light in reach. Side rails up X 1. mb9 23:25 No provider procedures requiring assistance completed. Patient did not have IV access mb9 during this emergency room visit. 10/02 00:31 Foot Right 3 View In Process Unspecified. EDMS Administered Medications: No medications were administered Medication: 10/01 23:26 VIS not applicable for this client. mb9 Outcome: 10/02 00:25 Discharge ordered by . regina 00:33 Discharged to home ambulatory. as6 00:33 Condition: stable 00:33 Discharge instructions given to patient, Instructed on discharge instructions, follow up and referral plans. Demonstrated understanding of instructions, follow-up care. 00:33 Patient left the ED. as6 Signatures: Dispatcher [employer] EDPaty Morton, HEALTHCARE ARCHITECT-C HEALTHCARE ARCHITECT-Stacey Jackson Ashby, RN RN as6 Sirena Tan RN RN vc1 Padmini Mark RN RN mb9 Corrections: (The following items were deleted from the chart) 10/01 23:17 23:16 Home Meds: None; vc1 vc1 23:17 23:16 PMHx: None; vc1 vc1
--- NOTE | 2022-10-02 00:26 | EDPHYS ---
Physician Documentation [facility] Name: Carlos Hernandez Age: 37 yrs Sex: Male : 1985 Arrival Date: 10/01/2022 Time: 22:44 Bed 10 Private MD: ED Physician Dung Brown HPI: 10/02 00:36 This 37 yrs old Male presents to ER via Ambulatory with complaints of Toe Injury. kb 00:36 The patient presents with a deformity, an injury, pain, swelling, tenderness. The kb complaints affect the right foot. Context: The problem was sustained at a sports field or court, resulted from the patient kicking, the patient can fully bear weight, the patient is able to ambulate. Onset: The symptoms/episode began/occurred just prior to arrival. Modifying factors: The symptoms are alleviated by nothing, the symptoms are aggravated by nothing. Associated signs and symptoms: Pertinent positives: swelling, Pertinent negatives: calf tenderness, fever, nausea, numbness, rash, tingling, vomiting, warmth, weakness. Severity of symptoms: At their worst the symptoms were moderate, in the emergency department the symptoms have improved. The patient has not experienced similar symptoms in the past. The patient has not recently seen a physician. Pt was doing a kick in [facility] and his toe got caught in partners clothing. Reports it was displaced laterally so he straightened it out right away. Historical: - Allergies: 10/01 23:16 No Known Allergies; vc1 - Home Meds: 23:16 levothyroxine 125 mcg tablet daily [Active]; vc1 - PMHx: 23:16 Hypothyroidism; vc1 - PSHx: 23:16 None; vc1 - Immunization history:: Client reports receiving the 2nd dose of the Covid vaccine. - Social history:: Smoking status: Patient/guardian denies using tobacco, but has a distant history of tobacco abuse. ROS: 10/02 00:35 Constitutional: Negative for fever, chills, and weight loss. kb MS/extremity: Positive for injury or acute deformity, deformity, pain, swelling, of the right fifth toe. All other systems are negative. Exam: 00:35 Constitutional: This is a well developed, well nourished patient who is awake, alert, kb and in no acute distress. Head/Face: Normocephalic, atraumatic. ENT: Moist Mucous membranes Cardiovascular: Regular rate and rhythm with a normal S1 and S2. No gallops, murmurs, or rubs. No pulse deficits. Respiratory: Respirations even and unlabored. No increased work of breathing. Talking in full sentences Skin: Warm, dry with normal turgor. Normal color. Neuro: Awake and alert, GCS 15, oriented to person, place, time, and situation. Moves all extremities. Normal gait. 00:35 Musculoskeletal/extremity: Extremities: grossly normal except: noted in the right fifth toe: ecchymosis, pain, swelling, tenderness, ROM: limited active range of motion due to pain, in the right fifth toe, Circulation is intact in all extremities. Sensation intact. Weight bearing: able to fully bear weight. Vital Signs: 10/01 23:11 BP 107 / 73; Pulse 77; Resp 15; Temp 98.2; Pulse Ox 96% ; Weight 73.94 kg; Height 5 ft. vc1 6 in. ; Pain 2/10; 23:11 Body Mass Index 26.31 (73.94 kg, 167.64 cm) vc1 23:11 Pain Scale: Adult vc1 MDM: 22:57 Patient medically screened. kb 10/02 00:32 Differential diagnosis: contusion, fracture, sprain, dislocation. Data reviewed: vital kb signs, nurses notes. Independent interpretation of the following test(s) in the Emergency Department X-Ray: My interpretation is fracture of proximal phalanx right fifth digit. Counseling: I had a detailed discussion with the patient and/or guardian regarding: the historical points, exam findings, and any diagnostic results supporting the discharge/admit diagnosis, radiology results, the need for outpatient follow up, a orthopedic surgeon, to return to the emergency department if symptoms worsen or persist or if there are any questions or concerns that arise at home. 10/02 00:15 Order name: Foot Right 3 View EDMS 10/02 00:25 Order name: Misc. Order: benja tape; Complete Time: 00:32 kb Administered Medications: No medications were administered Disposition: 03:44 Co-signature as Attending Physician, Dung Brown MD I agree with the assessment sp4 and plan of care. I reviewed the patient's care provided by the Advanced Practice Provider and agree with the diagnosis and treatment plan. Disposition Summary: 10/02/22 00:25 Discharge Ordered Location: Home kb Condition: Stable kb Diagnosis - Fracture of proximal phalanx of lesser toe(s) kb Followup: kb - With: Emergency Department - When: As needed - Reason: Worsening of condition Followup: kb - With: Private Physician - When: 2 - 3 days - Reason: Recheck today's complaints, Continuance of care, Re-evaluation by your physician Discharge Instructions: - Discharge Summary Sheet kb - Toe Fracture, [id number] kb Forms: - Medication Reconciliation Form kb - Thank You Letter kb - Antibiotic Education kb - Prescription Opioid Use kb Signatures: Dispatcher [employer] EDMS Paty Abbasi FNP-C FNP-Ckb Calcote, Vanessa, RN RN vc1 Dung Brown MD MD sp4 Corrections: (The following items were deleted from the chart) 10/01 23:17 23:16 Home Meds: None; vc1 vc1 23:17 23:16 PMHx: None; vc1 vc1 10/02 00:15 10/01 23:58 Foot Right 3 View ordered. EDMS EDMS 10/02 00:33 00:18 Foot Right 3 View+RAD.RAD.BRZ ordered. EDMS EDMS
[2022-10-02 01:44] VITALS: BP 107/73; TEMP 98.2; O2SAT 96
--- NOTE | 2022-10-02 15:32 | RAD REPORT ---
EXAM DESCRIPTION: RAD - Foot Right 3 View - 10/02/2022 12:30 am CLINICAL HISTORY: PAIN COMPARISON: None. TECHNIQUE: XR FOOT 3 OR MORE VIEWS 10/02/2022 12:00 AM CDT FINDINGS: There is a mildly displaced fracture of the proximal portion of the proximal fifth phalanx . Joint spaces are preserved. Soft tissues are unremarkable. IMPRESSION: Proximal fifth phalanx fracture. Electronically signed by: Thomas Garcia MD 10/02/2022 2:00 AM CDT Due to temporary technical issues with the PACS/Fluency reporting system, reports are being signed by the in house radiologists without review as a courtesy to insure prompt reporting. The interpreting radiologist is fully responsible for the content of the report.
== END 2022-10-02 00:33 | disposition home or self-care (01) ==
LOC: ER 22:44
DX: S92.511A Displaced fracture of proximal phalanx of right lesser toe(s), initial encounter for closed fracture (principal); E03.9 Hypothyroidism, unspecified
CPT/HCPCS: 99283